=== PATIENT | male | born 1955 | race Caucasian/White ===

== ENCOUNTER 2025-02-14 10:56 | Outpatient (AMB) | payer MEDICARE, SELFPAY ==
--- OUTSIDE RECORDS SUMMARY | 2024-07-19 04:33 | XMS_ITS | Continuity of Care Document ---
Author Organization [facility] Address [address] [place] [address] Dr [address] [place] [id number] Phone Care Team Providers Care Special Weapons Unit Officer Name Role Phone Foster CARPENTER, PAVITHRA, Zain NORIEGA Unavailable U navailable Allergies, Adverse Reactions, Alerts Substance Reaction Status Criticality No Known Allergies Active No Inform ation Advance Directives Directive Yes / No Effective Date File Name No Information Encounters Encounter Description Practice Location Reason(s) For Visit Diagnoses Date Provider Encounter Disposition [facility], [address] [place] [address] Dr Douglas [address]ores dolan [place], [id number], tel:[phone] [facility] No Information 5 Foster CARPENTER RVT, RPVI Robert. [address] [place] [address], [id number] , [place]. tel:[phone] [facility], [address] [place] [address] Dr Douglas [address]SuFlores d[place], [id number], tel:[phone] [facility] hypertension (idiopathic) with other complications of left lower extremity 4 Foster CARPENTER RVT, RPVI Robert. [address] [place] [address], [place], [place], [id number] , [place]. tel:[phone] [facility], [address] [place] [address] Dr Douglas [address]SuFlores dolan MD, [id number], tel:[phone] [facility] [place] Encounter for follow-up examination after completed treatment for conditions other than malignant neChronic venous hypertension (idiopathic) with other complications of left lower extremity 4 Foster CARPENTER RVT, LEANN Pittman. [address] [facility], Suite [facility], [facility], [place], [id number] , [place]. tel: [phone] [facility], [address] [place] [address] Dr Douglas [address], [id number], [place] tel:[phone] [facility] [place] Varicose veins of left lower extremity with other complications 4 Donny Leiva . [address] [facility], [place] [address], [facility], [place], [id number] , [place]. tel: [phone] [facility], [address] [place] [address] Dr Douglas [address] [place], [id number], [place] tel:[phone] [facility] [place] Varicose veins of left lower extremity with other complications 4 Foster CARPENTER RVT, LEANN Pittman. [address] [place] [address], [facility], [place], [id number] , [place]. tel: [phone] [facility], [address] [place] [address] Dr Douglas [address], [id number], [place] tel:[phone] [facility] [place] No Information 4 Fotser CARPENTER RVT, LEANN Pittman. [address] [facility] [address], [facility], [place], [id number] , [place]. tel: [phone] [facility], [address] [place] [address] Dr [address], [id number], [place] tel:[phone] [facility] [place] Chronic venous hypertension (idiopathic) with other complications of left lower extremityCram p and spasmRestless legs syndromeEssen tial (primary) hypertensionP ruritus, unspecified 4 Foster CARPENTER RVT, LEANN Pittman. [address] [place] [address], [place], [place], [id number] , [place]. tel:[phone] [facility], [address] [place] [address] Dr Douglas 1000[facility] 1000[place], [id number], tel:[phone] [facility] Varicose veins of left lower extremity with other complications Pain in left lower legPain in left legLocalized edemaRestless legs syndromeEssen tial (primary) hypertensionP ruritus, unspecifiedCr amp and spasm 4 Foster CARPENTER RVT, LEANN Pittman. [address] [place] [address], [place], [place], [id number] , [place]. tel:[phone] [facility], [address] [place] [address] Dr [address] [address], [id number], tel:[phone] [facility] Chronic venous hypertension (idiopathic) with other complications of left lower extremity 4 Foster CARPENTER RVT, LEANN Pittman. [facility] [place] [address], [place], [place], [id number] , [place]. [phone] Family History Family Member Type Diagnosis Age At Onset No Information Payers Payer name Insurance type Identifiers Authorization(s) Com ments No Information Social History Type Description Quantity Date Captured Comments Alcohol Use Details Unknown Caffeine Use Details Unknown Tobacco Use Status No Information Smoking Status No Information Sex Male Current Gender Male (finding) Chief Complaint And Reason For Visit No Information Plan Of Treatment Date Type Action Status Goal Diet education completed Referral Ordered: Weight management: Referral to physician timeframe: 3 Months (related to Body mass index (BMI) 31.0-31.9, adult) ordered History Of Present Illness Encounter Date Complaint History Of Prese nt Illness No Information Functional Status Date Description Comments No Information Instructions Date Instruction Additional Infor mation Patient education booklet given Related to Chronic venous hypertension (idiopathic) with other complications of left lower extremity Patient education booklet given Related to Varicose veins of left lower extremity with other complications Lifestyle education Related to B eileen mass index (BMI) 31.0-31.9, adult Giving Encouragement to exercise Related to Body mass index (BMI) 31.0-31.9, adult Diet education Related to Body mass index (BMI) 31.0-31.9, adult Assessments Type Assessment Date No Information
[2025-02-14 11:01] VITALS: BMI 31.0
--- NOTE | 2025-02-14 11:01 | A.PHYSOV ---
Vital Signs 02/14/25 11:01 Height 5 ft 11 in Weight 222 lb BMI 31.0 Intake Visit Reasons: NPV- lumbar radiculopathy Intake Note: Patient is a 69 year old male here for a new patient office visit. Patient has been referred for lumbar radiculitis. Blower Mechanic Required: No Allergies doxycycline Allergy (Unknown, Verified 02/14/25 11:03) Unknown rosuvastatin Allergy (Unknown, Verified 02/14/25 11:03) Unknown HPI Comments Details: History of Present Illness The patient is a 69 year old male presenting for evaluation of low back pain with radiation into his left leg. He reports that for the last 3-4 months, he has had back and leg pain, which he suspects may have started after moving a heavy chest of drawers. The pain initially started on his side, then moved to his ankle and foot, and now primarily presents in his buttock and ankle, describing the pain as excruciating at times. His symptoms have progressed to the point where a few weeks ago he could barely stand and the pain would make him cry. Due to the pain, he has been sleeping in a recliner for the past 3-4 months as this is the only position that provides relief, despite having an adjustable bed. He uses a heating pad without a cover directly on his skin for relief, which has resulted in guillory on his back. Prior treatments include complex care nurse, which was not helpful, and physical therapy, which initially provided some benefit but then his symptoms regressed after 2-3 weeks. He has been taking gabapentin, which seems to help, but he is averse to taking other pain pills. He has a history of arthritis, a torn meniscus approximately three years ago that resolved without surgery after weight loss, and prior vein surgery on his legs. I reviewed the referring provider's no prior to consultation Pain Description - Onset: Began approximately 3-4 months ago, possibly after moving a heavy piece of furniture. - Location and Radiation: Pain is in the low back and left buttock, radiating down the side of the left leg to the ankle and foot. - Quality and Severity: Described as excruciating at times, severe enough to cause him to cry and make standing difficult. - Exacerbating factors: Standing can bring on severe pain. - Relieving factors: Sitting down, applying a heating pad to the buttock, taking gabapentin, and sleeping in a recliner provide relief. - Associated Symptoms: Reports weakness in the leg noted by his physical therapist. Results - Imaging: - X-ray of the lumbar spine shows degenerative disc disease and moderate disc space narrowing at L4-5 and L5-S1. - Hip x-ray is normal. - An MRI of the lumbar spine is scheduled for tonight. [facility] Surgical History H/O lithotripsy Hx of tonsillectomy H/O hernia repair Social History Alcohol intake: current Alcohol intake frequency: does not drink Patient Tobacco Use Status: Never used Tobacco Use of substances other than those prescribed or required for medical reasons: No Review of Systems Narrative Review of Systems - Musculoskeletal: Reports low back pain and left leg pain radiating from the buttock to the ankle. - Neurological: Reports leg weakness. - Constitutional: Reports difficulty sleeping due to pain, requiring him to sleep in a recliner. - Integumentary: Reports guillory on his back from use of a heating pad. Physical Exam Exam Exam: Physical Exam - Back: Visual inspection reveals evidence of guillory on the lower back. - Lumbar Spine: Extension did not reproduce radicular pain. - Lower Extremities: Motor strength is 5/5 for foot dorsiflexion and plantarflexion bilaterally. - Straight leg raise test is negative bilaterally. - Resisted hip flexion does not elicit pain. - Sensation is intact and symmetric to light touch throughout bilateral lower extremities. Vital Signs: BMI result Body Mass Index 31.0 Assessment & Plan Assessment & Plan (1) Lumbar radiculopathy: Code(s): M54.16 - Radiculopathy, lumbar region Category: Medical (2) Lumbar spondylosis: Code(s): M47.816 - Spondylosis without myelopathy or radiculopathy, lumbar region Category: Medical Plan Pain Management - Affect: The pain is causing significant distress, including episodes of crying, and severe sleep disruption. - Analgesia: The patient uses gabapentin which provides some relief and occasionally takes Motrin. - Adverse Effects: He has sustained guillory on his back from using a heating pad without a protective cover. - Activities of Daily Living: Sleep is significantly impacted, as he can only sleep in a recliner for the last 3-4 months. - Aberrant Drug Related Behaviors: The patient is averse to taking prescription pain pills and has expressed a desire to avoid them. Plan Patient was informed and verbally consented to the use of an ambient scribe for clinic note documentation during this visit. 1. Low Back Pain With Left Radiculopathy The patient's symptoms are consistent with a left-sided lumbosacral radiculopathy, likely from a pinched nerve at the L5-S1 level. This could be due to a disc herniation or foraminal narrowing from arthritis, which is seen on his prior X-rays. The plan is to obtain and review the results of the patient's pending lumbar spine MRI to confirm the diagnosis and identify the precise cause. Once the MRI report is received and reviewed, the likely recommendation will be a left L5-S1 epidural steroid injection. The procedure's goal of achieving 50-80% pain relief for 3-6 months, its repeatability, and the alternative of taking pills (which the patient declines) were discussed. Follow-up will occur via phone to discuss the MRI results and arrange for the injection, pending insurance authorization. Discussion Notes I discussed with the patient that his symptoms strongly suggest a pinched nerve in his lower back, likely at the L5-S1 level, causing the pain radiating into his left leg. I explained that while his X-rays show some arthritis and disc space narrowing, an MRI is necessary to visualize the nerves and discs to confirm the diagnosis. I introduced the option of a lumbar epidural steroid injection as a primary treatment once the diagnosis is confirmed. I explained that the injection uses a long-acting steroid to reduce inflammation around the pinched nerve, with the goal of 50-80% pain reduction lasting three to six months, and that the procedure is repeatable if effective. We discussed that this is an alternative to taking oral pain medications, which he wishes to avoid. I informed him that once I review the MRI report, I will call him to discuss the findings and can order the injection at that time without needing him to return for another office visit. We discussed that the procedure can be performed in the office, and while there is a chance of temporarily magnifying his leg pain if the needle contacts the nerve, he appears to be a good candidate to tolerate the procedure without sedation. Patient Instructions - Please proceed with your scheduled MRI of your lower back tonight. - After the MRI, please contact the office of the doctor who ordered it (Dr. Avila) and request that they fax the report to our office. - Once we receive and review your MRI report, we will call you to discuss the findings and the plan for a steroid injection. - You do not need to schedule a follow-up appointment in the office; we will handle the next steps over the phone. - Continue to use your gabapentin as needed for pain, but be careful with heating pads to avoid burning your skin. Coding Level of Care Code New Pt Level 4 (24015) Diagnoses Lumbar radiculopathy M54.16 Lumbar spondylosis M47.816
--- OUTSIDE RECORDS SUMMARY | 2025-02-14 12:51 | XMS_ITS | Continuity of Care Document ---
Author Organization [facility], Main Office Address [address] [place] [address] Care Team Providers Care Pipeline Engineer Name Role Phone JORGE ALBERTO OLEA Anesthesia Assistant [facility] Urologist OPHELIA MITCHELL Clinical Account Manager [phone] [facility] (SHADE HENDRIX) Orthopedic Surgeon DREW BLOOD Primary Care Provider Assessment No assessment recorded. Plan of Treatment Reminders Order Date Submit Date Provider Last Modified By Organization Details Last Modified Time Details Appointments FOLLOW UP 30MIN 2024 10:30A M VIANCA ACEVEDO Not available Not available Not available PE EST 2025 03:00P M Drew Blood MD Not available Not available Not available Lab None recorded. Referral None recorded. Procedures None recorded. Surgeries None recorded. Imaging None recorded. Medication Orders ibuprofen 800 mg tablet 2024 025 [facility]acy #[id number], [address], [place], [address], 01/22/2025 10:55:11 amlodipin e 5 mg tablet 2024 025 [facility] #[id number], [address], [place], [address], 01/22/2025 10:55:13 lisinopri l 20 mg tablet 2024 025 [facility]acy #[id number], [address], [place], [address], 01/22/2025 10:55:15 Patient TargetsNo targets recorded. Patient Instructions Encounter Date Encounter Id Patient Instructions Last Modified By Organization Details Last Modified Time 01/22/2025 [id number] high blood pressure: care instructions Not available 01/22/2025 10:55:08 learning about high blood pressure Not available 01/22/2025 10:55:08 Addendum: Melita peres s approached me today reporting that the patient has been experiencing worsening radicular symptoms, including numbness in the right foot. I contacted the patient directly, and he confirmed increasing numbness as well as new-onset weakness. He reports completing physical therapy but has had difficulty performing the prescribed exercises. Given the progression of symptoms and the radiologist s findings on the recent X-ray, an MRI has been ordered for further evaluation. Red flags and indications for seeking immediate care in the emergency department were reviewed with the patient. MRI order has been placed. [email or web address] Not available 02/06/2025 12:55:49 Reason for Referral None Reported. Results Created Date Observation Date Name Description Value Unit Range Abnormal Flag Note LastModifiedBy Organization Detail LastModifiedTime 01/23/2001/22/2025 BASIC METAB OLIC PANEL (8) glucose 86 mg/dL 70-99 normal Not Available [facility] ([facility]) [address] [place], [address], 01/22/2025 18:06:01 01/23/2001/22/2025 BASIC METAB OLIC PANEL (8) BUN 15 mg/dL 8-27 normal Not Available [facility] ([facility]) [address] [place], [address], 01/22/2025 18:06:01 01/23/20 25 01/22/2025 BASIC METAB OLIC PANEL (8) creatinine 0.94 mg/dL 0.76-1 .27 normal Not Available [facility] ([facility]) [address] [place], [address], 01/22/2025 18:06:01 01/23/20 25 01/22/2025 BASIC METAB OLIC PANEL (8) eGFR 89 mL/mi n/1.7 3 >59 normal Not Available [facility] ([facility]) [address] [place], [address], 01/22/2025 18:06:01 01/23/20 25 01/22/2025 BASIC METAB OLIC PANEL (8) BUN/creatini ne ratio 16 10-24 normal Not Available [facility] ([facility]) [address] [place], [address], 01/22/2025 18:06:01 01/23/20 25 01/22/2025 BASIC METAB OLIC PANEL (8) sodium 137 mmol/ L 134-14 4 normal Not Available [facility] ([facility]) [address] [place], [address], 01/22/2025 18:06:01 01/23/20 25 01/22/2025 BASIC METAB OLIC PANEL (8) potassium 4.2 mmol/ L 3.5-5. 2 normal Not Available [facility] ([facility]) [address] [place], [address], 01/22/2025 18:06:01 01/23/20 25 01/22/2025 BASIC METAB OLIC PANEL (8) chloride 101 mmol/ L 96-106 normal Not Available [facility] ([facility]) [address] [place], [address], 01/22/2025 18:06:01 01/23/20 25 01/22/2025 BASIC METAB OLIC PANEL (8) carbon dioxide, total 26 mmol/ L 20-29 normal Not Available [facility] ([facility]) [address] [place], [address], 01/22/2025 18:06:01 01/23/20 25 01/22/2025 BASIC METAB OLIC PANEL (8) calcium 9.7 mg/dL 8.6-10 .2 normal Not Available [facility] ([facility]) [address], [place], [address], 01/22/2025 18:06:01 12/27/19 25 12/25/2024 XR, lumba r spine No observ ation record ed. [facility] [address], [place], [address], 12/27/2024 13:09:40 Result Notes None recorded. Problems Name Problem SNOMED Code Status Onset Date Resolution Date Notes Provider Name and Address Organization Details Recorded Time Obstruct edda sleep apnea syndrome [id number] Active Refuses CPAP Rafa Mcpherson MD [address], [place], [address], [facility] 6 11:40:10 Impacted cerumen 34955922 Completed 05/25/2023 BRIAN Fung, [facility] 4 10:57:15 Upper abdomina l pain 39299441 Completed 02/13/2018 Jayesh Mcallister MD [address] [address], [place], [address], [facility] 8 11:18:01 Chest pain 19013059 Completed 07/20/2016 BRIAN Fung, [facility] 7 10:42:32 Influenz a 5416571 Completed 03/20/2020 BRIAN Fung, [facility] 1 10:42:12 Tear of medial meniscus of knee 227734953 Active Rafa Mcpherson MD [address] [address], [place], [address], [facility] 6 13:21:49 Pleuriti c pain 1553294 Completed 09/09/2018 Rafa Mcpherson MD [address] [address], [place], [address], [facility] 9 22:43:23 Right upper quadrant pain 988491394 Completed 09/09/2018 Rafa Mcpherson MD [address], [facility] [place], [address], [facility] 9 22:44:18 Pneumoni a 648644058 Completed 02/13/2018 Jayesh Mcallister MD [address], [place], [address], [facility] 8 11:13:21 Cellulit is and abscess of foot excludin g toe Completed 200609/17/2013 RESOLVED DATE: 10/28/19 07; RECORDED 10/28/19 07 6:57AM BY RAFA MCPHERSON MD, OFFICE VISIT Rafa Mcpherson MD [address], [place], [address], [facility] 6 11:40:09 Cellulit is and abscess of foot excludin g toe Completed 200610/07/2013 RESOLVED DATE: 10/28/19 07; RECORDED 10/28/19 07 6:57AM BY RAFA MCPHERSON MD, OFFICE VISIT Rafa Mcpherson MD [address], [place], [address], [facility] 6 11:40:09 Epigastr ic pain 34242293 Completed 201109/17/2013 RECORDED 02/15/20 12 10:16AM BY NALLELY LOFTON MA, ANNOTATI ON/ADDEN DUM Rafa Mcpherson MD [address], [place] [facility] [place] [place], [address], [facility] 6 11:40:10 Chest pain 41090412 Completed 201109/17/2013 IMPRESSI ON: HE IS GETTING STRESS TEST IN 2 WEEKS. DOUBT CARDIAC CAUSE. COULD BE GI RELATED. BUT DOES NOT WANT TO TAKE OMEPRAZO LE BECAUSE HATES BEING ON MEDS.; RECORDED 02/15/20 12 10:16AM BY NALLELY LOFTON MA, ANNOTATI ON/ADDEN DUM Nallely encinas MA null, [facility] 7 10:42:32 Kidney stone 31340593 Completed 201109/17/2013 RECORDED 02/15/20 12 10:16AM BY NALLELY LOFTON MA, ANNOTATI ON/ADDEN DUM Rafa Mcpherson MD [address] [address], [place], [address], [facility] 6 11:40:09 Blood in urine 18707765 Completed 201109/17/2013 IMPRESSI ON: NEG URINE HERE NO EVIDENCE OF INFECTIO N; RECORDED 02/15/20 12 10:16AM BY NALLELY LOFTON MA, ANNOTATI ON/JERIEN DUM Rafa Mcpherson MD [address] [address], [place], [address], [facility] 6 11:40:09 Hemoptys is 85643818 Completed 201109/17/2013 IMPRESSI ON: CXR NORMAL. 1 EVENT. SUSPECT POSTNASA L DRIP FROM EITHER ALLERGIE S OR VIRAL URI. HE DOES NOT WANT TO TAKE FLONASE OR ANY OTHER MEDICINE S THAT COULD HELP THIS.; RECORDED 02/15/20 12 10:16AM BY NALLELY LOFTON MA, ANNOTATI ON/ADDEN DUM Rafa Mcpherson MD [address] [address], [place], [address], [facility] 6 11:40:09 Influenz a vaccine needed [id number] 06 Completed 201109/17/2013 RECORDED 02/15/20 12 10:17AM BY NALLELY LOFTON MA, ANNOTATI ON/ADDADRI Mcpherson MD [address] [address], [place], [address], [facility] 6 11:40:10 Shoulder joint pain 066818378 Completed 201109/17/2013 RECORDED 02/15/20 12 10:17AM BY NALLELY LOFTON MA, GUY ON/ADDEN DUM Rafa Mcpherson MD [address], [place], [address], [facility] 6 11:40:09 Epigastr ic pain 26318919 Completed 201110/07/2013 RECORDED 02/15/20 12 10:16AM BY NALLELY LOFTON MA, ANNOTATI ON/ADDEN DUM Rafa Mcpherson MD [address], [place], [address], [facility] 6 11:40:10 Chest pain 86185815 Completed 201110/07/2013 IMPRESSI ON: HE IS GETTING STRESS TEST IN 2 WEEKS. DOUBT CARDIAC CAUSE. COULD BE GI RELATED. BUT DOES NOT WANT TO TAKE OMEPRAZO LE BECAUSE HATES BEING ON MEDS.; RECORDED 02/15/20 12 10:16AM BY NALLELY LOFTON MA, ANNOTATI ON/ADDEN DUM Nallely encinas MA null, [facility] 7 10:42:32 Kidney stone 28017875 Completed 201110/07/2013 RECORDED 02/15/20 12 10:16AM BY NALLELY LOFTON MA, ANNOTATI ON/ADDEN DUM Rafa Mcpherson MD [address], [place], [address], [facility] 6 11:40:09 Blood in urine 23679150 Completed 201110/07/2013 IMPRESSI ON: NEG URINE HERE NO EVIDENCE OF INFECTIO N; RECORDED 02/15/20 12 10:16AM BY NALLELY LOFTON MA, ANNOTATI ON/NIKKI Mcpherson MD [address], [place], [address], [facility] 6 11:40:09 Hemoptys is 14872358 Completed 201110/07/2013 IMPRESSI ON: CXR NORMAL. 1 EVENT. SUSPECT POSTNASA L DRIP FROM EITHER ALLERGIE S OR VIRAL URI. HE DOES NOT WANT TO TAKE FLONASE OR ANY OTHER MEDICINE S THAT COULD HELP THIS.; RECORDED 02/15/20 12 10:16AM BY NALLELY LOFTON MA, GUY ON/NIKKI Mcpherson MD [address], [place], [address], [facility] 6 11:40:09 Influenz a vaccine needed [id number] 06 Completed 201110/07/2013 RECORDED 02/15/20 12 10:17AM BY NALLELY LOFTON MA, ANNOTATI ON/NIKKI Mcpherson MD [address] [address], [place], [address], [facility] 6 11:40:10 Shoulder joint pain 915592581 Completed 201110/07/2013 RECORDED 02/15/20 12 10:17AM BY NALLELY LOFTON MA, GUY ON/NIKKI Mcpherson MD [address], [place], [address], [facility] 6 11:40:09 Cellulit is of digit 60203374 Completed 201109/17/2013 STORY: TRAUMA AND POSSIBLE INFECTIO N RIGHT GREAT TOE; RECORDED 02/18/20 12 8:42AM BY GUY CHRIS ON/NIKKI Mcpherson MD [address], [place], [address], [facility] 6 11:40:09 Injury of knee 960288865 Completed 201109/17/2013 RECORDED 02/18/20 12 8:42AM BY GUY CHRIS ON/ADDEN DUM Rafa Mcpherson MD [address], [place], [address], [facility] 6 11:40:10 Cellulit is of digit 73776450 Completed 201110/07/2013 STORY: TRAUMA AND POSSIBLE INFECTIO N RIGHT GREAT TOE; RECORDED 02/18/20 12 8:42AM BY GUY CHRIS ON/ADDEN BRITTANY Mcpherson MD [address], [place], [address], [facility] 6 11:40:09 Injury of knee 424231094 Completed 201110/07/2013 RECORDED 02/18/20 12 8:42AM BY GUY CHRIS ON/ADDEN DUM Rafa Mcpherson MD [address], [place], [address], [facility] 6 11:40:10 Follow-u p encounte r Completed 201309/17/2013 RECORDED 06/07/19 14 11:05AM BY NALLELY LOFTON MA, DARIONATI ON/ADDEN DUM Rafa Mcpherson MD [address], [place], [address], [facility] 6 11:40:10 Malaise and fatigue 338695347 Completed 201309/09/2018 Rafa Mcpherson MD [address], [place], [address], [facility] 9 22:44:20 Gastroes ophageal reflux disease 716597721 Active 2013 Nallely encinas [place] null, [facility] 6 09:20:52 Hyperlip idemia 09416410 Active 2013 BRIAN Fung, [facility] 6 09:21:06 Hypersom ziggy 78472793 Completed 201307/21/2015 RECORDED 06/07/19 14 12:05PM BY RAFA MCPHERSON MD, OFFICE VISIT Rafa Mcpherson MD [address], [place], [address], [facility] 6 11:40:10 Essentia l hyperten steffanie 41967617 Active 2013 BRIAN Fung, [facility] 6 09:21:09 Contact dermatit is due to plants, except food Completed 201309/17/2013 RECORDED 06/07/19 14 11:05AM BY NALLELY LOFTON MA, ANNOTATI ON/ADDEN DUM Rafa Mcpherson MD [address], [place], [address], [facility] 6 11:40:09 Renal colic 5265366 Active 2013 IMPRESSI ON: HX OF LARGE STONE 2009 TX WITH LASER AND STENT, NOW RETURN OF PAIN, WILL REFER TO UROLOGY, GET IMAGING FIRST IF THEY PREFER, DOES NOT WANT PAIN MEDS, HYDRATE AND WILL CHECK URINE FOR INFECTIO N BUT URINE DIP IS CLEAN, CHECK CULTURE, PT TO CALL IF SIGNS OF ILLNESS, FEVER; BRIAN Fung, [facility] 6 09:21:16 Follow-u p encounte r Completed 201310/07/2013 RECORDED 06/07/19 14 11:05AM BY NALLELY LOFTON MA, ANNOTATI ON/ADDEN DUM Rafa Mcpherson MD [address], [place], [address], [facility] 6 11:40:10 Contact dermatit is due to plants, except food Completed 201310/07/2013 RECORDED 06/07/19 14 11:05AM BY NALLELY LOFTON MA, ANNOTATI ON/NIKKI Mcpherson MD [address], [place], [address], [facility] 6 11:40:09 Body mass index 30+ - obesity 353590289 Active 2022 Kathia Day PA-C [address], [place], [address], [facility] 3 09:14:55 Pain in left lower limb 878583533 Active 2023 Margarito Noel, [facility] [address], [place], [address], [facility] 4 11:11:30 Venous varices 140725030 Active 2023 Margarito Noel, [facility] [address], [place], [address], [facility] 4 11:16:22 Strain of flexor muscle of left hip 53933139301 675533 Active 2023 Margarito Noel, [facility] [address], [place], [address], [facility] 4 11:19:18 Tubular adenoma 240257809 Active 2023 Kathia Day PA-C [address], [place], [address], [facility] 4 10:16:41 Pain of left calf 69837820535 87379 Active 2024 PATRICK DAVIS [place], [facility]- [address], [place], [address], [facility] 5 10:06:52 Blood pressure above referenc e range 22019481 Active 2024 PATRICKGARTH DAVIS [facility] [address], [place], [address], [facility] 5 12:48:52 Lumbar radiculo brian 514006681 Active 2024 [facility] [address], [place], [address], [facility] 5 10:48:25 Problem Notes None recorded. Procedures Surgical History Date Name Laterality Status Provider Name and Address Organization Details Recorded Time 08/29/19 21 Colonoscopy completed Sarah Sow [facility] 09/08/2020 12:53:01 03/27/19 16 EGD completed Юлия Abarca [facility] 04/01/2015 10:26:48 Tonsillectomy completed Nallely velazquez MA [facility] 09/25/2013 09:57:37 Hernia Repair completed Nallely velazquez MA [facility] 09/25/2013 09:57:37 Fragmenting of kidney stone completed Nallely velazquez MA [facility] 03/20/2020 10:41:58 Imaging Results None recorded. Procedure Notes None recorded. Medical Equipment None Reported. Allergies Allergen ID Allergen Name Allergen Category Reaction Reaction Severity Criticality Documentation Date Start Date Code Code System Note Provider Name and Address Organization Details Recorded Time 23247 No known allergy (situatio n) Not available Not available Not available Not available 09/10/20132010 22341 6003 SNOMED COMME NT: RECOR DED 02/24 1:06P M BY MARIA ELENA BENNETT [place], OFFIC E VISIT ; Not Available [facility] 4 13:29:01 39949 doxycycli ne Not available other Not available Not available 10/09/2014 3640 RxNorm taken for Lyme Disea se; made me crazy BRIAN Fung, [facility] 5 10:25:49 00494 rosuvasta tin medicatio n arthralgi a (joint pain) myalgias (muscle pain) Not available Not available Not available 05/25/2023 80860 2 [facility] 10:[facility]32 Medications Name Sig Start Date Stop Date Status Note LastModified by Organization Details LastModified Time amoxicill in 500 mg capsule TAKE 1 CAPSULE BY MOUTH EVERY 6 HOURS UNTIL GONE 04/17 completed Not Available Not Available Not Available clindamyc in HCl 300 mg capsule TID 02/24 completed RECORDED 02/25/20 11 1:02PM BY NALLELY LOFTON MA, OFFICE VISIT; Not Available Not Available Not Available ibuprofen 800 mg tablet TAKE 1 TABLET BY MOUTH THREE TIMES A DAY NEEDED active Not Available Not Available No t Available benzonata te 200 mg capsule TAKE 1 CAPSULE BY MOUTH 3 TIMES A DAY NEEDED FOR COUGH FOR UP TO 10 DAYS. 07/06 completed Not Available Not Available Not Available meloxicam 15 mg tablet TAKE 1 TABLET BY MOUTH EVERY DAY 03/20 completed Not Available Not Available Not Available lisinopri l 20 mg tablet TAKE 1 TABLET BY MOUTH EVERY DAY active Not Available Not Available No t Available famotidin e 40 mg tablet TAKE 1 TABLET BY MOUTH EVERYDAY AT BEDTIME 11/12 completed Not Available Not Available Not Available Debrox 6.5 % ear drops INSTILL 5 DROPS INTO AFFECTED EAR(S) BY OTIC ROUTE 2 TIMES PER DAY FOR NO MORE THAN 4 DAYS 07/06 completed Not Available Not Available Not Available penicilli n V potassium 500 mg tablet active Not Available Not Available Not Available acetamino phen 300 mg-codein e 30 mg tablet TAKE 1 TABLET BY MOUTH EVERY 6 HOURS NEEDED PAIN 03/20 completed Not Available Not Available Not Available amlodipin e 5 mg tablet TAKE 1 TABLET BY MOUTH EVERY DAY active Not Available Not Available No t Available sulfameth oxazole 800 mg-trimet hoprim 160 mg tablet TWO TIMES DAILY 03/17 completed RECORDED 06/28/19 13 11:10AM BY RAFA MCPHERSON MD, MEDICATI ON AUTO-JUSTIN CTIVATIO N; Not Available Not Available Not Available omeprazol e 40 mg capsule,d elayed release Take 1 capsule every day by oral route. 02/13 completed Not Available Not Available Not Available amoxicill in 500 mg tablet TAKE 1 TABLET BY MOUTH EVERY 6 HOURS UNTIL GONE 05/24 completed Not Available Not Available Not Available Medrol 4 mg tablet DAILY PER INSTRUCT IONS 07/15 completed RECORDED 04/16/19 14 11:42AM BY RAFA MCPHERSON MD, MEDICATI ON AUTO-JUSTIN CTIVATIO N; Not Available Not Available Not Available amoxicill in 875 mg tablet active Not Available Not Available Not Available benzonata te 100 mg capsule Take 1 capsule 3 times a day by oral route as needed for 5 days. 03/26 completed Not Available Not Available Not Available oseltamiv ir 75 mg capsule TAKE 1 CAPSULE BY MOUTH TWICE A DAY FOR 5 DAYS 07/06 completed Not Available Not Available Not Available lisinopri l 10 mg tablet Take 1 tablet every day by oral route for 30 days. 01/22 completed Not Available Not Available Not Available omeprazol e 20 mg capsule,d elayed release Take 1 capsule every day by oral route at bedtime. 11/12 completed Not Available Not Available Not Available codeine 10 mg-guaife nesin 100 mg/5 mL oral liquid Take 10 mL every 4-6 hours by oral route for 7 days. 01/22 completed Not Available Not Available Not Available gabapenti n 100 mg capsule TAKE 1 CAPSULE BY MOUTH THREE TIMES A DAY NEEDED FOR 30 DAYS active Not Available Not Available No t Available cefuroxim e axetil 500 mg tablet Take 1 tablet twice a day by oral route for 21 days. 04/05 completed Not Available Not Available Not Available methylpre dnisolone 4 mg tablets in a dose pack TAKE 6 TABLETS ON DAY 1 DIRECTED ON PACKAGE AND DECREASE BY 1 TAB EACH DAY FOR A TOTAL OF 6 DAYS 07/06 completed Not Available Not Available Not Available amoxicill in 875 mg-potass ium clavulana te 125 mg tablet TAKE 1 TABLET BY MOUTH TWICE DAILY FOR 7 DAYS. 04/17 completed Not Available Not Available Not Available cyclobenz aprine 5 mg tablet Take 1 tablet 3 times a day by oral route as directed for 10 days. 10/21 completed Not Available Not Available Not Available rosuvasta tin 10 mg tablet TAKE HALF A TABLET FOR 1 WEEK AT BEDTIME IF TOLERATE D INCREASE TO 1 TABLET ONWARDS. 05/24 completed Not Available Not Available Not Available omeprazol e DAILY 06/06 completed RECORDED 06/07/19 14 11:11AM BY NALLELY LOFTON MA, OFFICE VISIT; Not Available Not Available Not Available ProAir HFA 90 mcg/actua tion aerosol inhaler Inhale 2 puffs every 4-6 hours by inhalati on route as needed for 30 days. 09/07 completed Not Available Not Available Not Available peg 3350-elec trolytes 236 gram-22.7 4 gram-6.74 gram-5.86 gram solution MIX WITH WATER AND DRINK 1 GLASS EVERY 15-30 MINUTES UNTIL FINISHED 10/21 completed Not Available Not Available Not Available Wegovy 0.25 mg/0.5 mL subcutane ous pen injector Inject 0.5 mL every week by subcutan eous route. 11/12 completed [email or web address] in [facility]; 05/11/21 not sure which dose he's currentl y on Not Available Not Available Not Available tirzepati de (weight loss) 10 mg/0.5 mL subcutane ous pen injector Inject 2.5 mg every week by subcutan eous route as directed . active 15 units (per patient) , prescrib ed by [email or web address] in [facility] Not Available Not Available Not Available Vitals Date Recorded Body height Body mass index (BMI) Body weight Heart rate Oxygen saturation Body temperature Systolic And Diastolic Provider Name and Address Organization Details Last Updated DateTime 5 175.26 cm 33.1 kg/m2 560734. 69 g 66 /min 96 % 97.2 [degF] 120/72 mm[Hg] Dimitri savage MA MA - [facility] [place] 5 10:16:48 Social History Question Answer Notes LastModified by Organizat ion Details LastModified Time Tobacco Smoking Status [facility]25/2013 08:50:12 Do You Have An Advance Directive? Yes [facility] [email or web address] Information not available 11/12/2021 Is Blood Transfusion Acceptable In An Emergency? Yes Information not available 10/09/2014 What Is Your Level Of Caffeine Consumption? Moderate 2 1/2cups Of Coffee Daily; [email or web address] Information not available 01/01/2025 How Much Tobacco Do You Chew? None Information not available 10/09/2014 What Type Of Diet Are You Following? REGULAR Information not available 09/25/2013 Which Illicit Or Recreational Drugs Have You Used? None Information not available 10/09/2014 Live Alone Or With Others? With Others ([employer] [email or web address] Information not available 11/12/2021 Do You Take Precautions To Prevent Distracted Driving? Yes Information not available 10/09/2014 How Often Do You Need To Have Someone Help You When You Read Instructions, Pamphlets, Or Other Written Material From Your Doctor Or Pharmacy? Sometimes Information not available 10/09/2014 Have You Served In The ? No [employer] Information not available 09/07/2018 Have You Or Anyone In Your Household Had Any Of The Following Symptoms In The Last 14 Days: Sore Throat, Cough, Chills, Body Aches For Unknown Reasons, Shortness Of Breath For Unknown Reasons, Loss Of Smell, Loss Of Taste, Fever At Or Greater Than 100 Degrees Fahrenheit? No Information not available 03/20/2020 Are You Or Anyone In Your Household A Health Care Provider Or Emergency Responder? No Information not available 03/20/2020 To The Best Of Your Knowledge Have You Been In Close Proximity To Any Individual Who Tested Positive For COVID-19? No Information not available 03/20/2020 *AWV ONLY* Are You Presently Prescribed Opioid Medication By PCP Or Specialist? If YES -Provider Assess The Benefit For Other, Non-opioid Pain Therapies Instead, Even If The Patient Does Not Have OUD But Is Possibly At Risk. No Information not available 03/20/2020 Have You Recently Traveled To A [place] [id number] High Risk Area Or Gathering In The Last 10 Days? No Information not available 03/20/2020 What Was The Date Of Your Most Recent Tobacco Screening? 01/01/2025 [email or web address] Information not available 01/01/2025 How Many Children Do You Have? 4 3 Boys, 1 Girl Information not available 03/20/2020 Do You Use Protection During Sex? No Information not available 10/09/2014 Do You Use Your Seat Belt Or Car Seat Routinely? Yes Information not available 08/28/2023 Seat Belts Used Routinely Yes [email or web address] Information not available 11/12/2021 Are You Sexually Active? Yes Information not available 10/09/2014 Smoke Alarm In Home Yes [email or web address] Information not available 11/12/2021 Do You Have Smoke And Carbon Monoxide Detectors In Your Home? Yes Information not available 08/28/2023 At What Age Did You Start Smoking Tobacco? 0 Information not available 10/09/2014 Are You Passively Exposed To Smoke? No Information not available 10/09/2014 How Much Tobacco Do You Smoke? No Information not available 09/25/2013 Do You Use Sunscreen Routinely? No Information not available 10/09/2014 How Many Years Have You Smoked Tobacco? 0 Information not available 10/09/2014 Sex: Unknown Functional Status Question Answer Note LastModified by Organizat ion Details LastModified Time Do you use any illicit or recreational drugs? No [email or web address] Information not available 11/12/2021 Do you or have you ever used any other forms of tobacco or nicotine? No [email or web address] Information not available 11/12/2021 What is your level of alcohol consumption? None Information not available 10/09/2014 Do you or have you ever used smokeless tobacco? Never used smokeless tobacco [id number] Information not available 05/02/2019 Are you currently employed? No Information not available 08/28/2023 Are you able to walk independently without assistance or assistive devices? YESWOREST [email or web address] Information not available 11/12/2021 Are you able to care for yourself independently? 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 Never used electronic cigarettes [email or web address] Information not available 11/12/2021 What is your exercise level? Occasional Information not available 08/28/2023 Mental Status None recorded. Family History Relationship Description Onset Age of this Age Resolved Age Notes LastModified by Organization Details LastModified Time Mother Essential hypertension Not available 09:29:45 Mother Hypertensive disorder Not available 08/27 09:29:45 Father Essential hypertension Not available 09:29:45 Father Diabetes mellitus [email or web address] s Not available 10/09/2014 10:25:49 Father Hypertensive disorder Not available 08/27 09:29:45 Father Heart disease 5 Not available 08/27 09:29:45 Brother Malignant neoplasm of brain Not available 08/27 09:29:45 Paternal Uncle Malignant neoplasm of colon [email or web address] Not available 2015 09:44:18 Medical History Condition Response Varicose Veins Y Acid Reflux (GERD) Y Immunizations Vaccine Type Date Status Note Provider Nam e and Address Organization Details Recorded Time COVID-19, mRNA, LNP-S, PF, 100 mcg/0.5mL dose or 50 mcg/0.25mL dose 1 completed [facility] 03/26/2021 08:44:52 COVID-19, mRNA, LNP-S, PF, 100 mcg/0.5mL dose or 50 mcg/0.25mL dose 1 completed BRIAN Bonds [facility] [place] 03/26/2021 08:44:52 Tdap 6 completed Not Available [facility] 03/16/2019 02:21:45 Influenza, split virus, quadrivalent , PF 6 completed Not Available [facility] 03/16/2019 02:22:04 Tdap 5 completed Not Available [facility] 01/22/2025 10:04:25 Influenza, split virus, quadrivalent , PF 8 completed Not Available [facility] 03/16/2019 02:22:22 Influenza, split virus, quadrivalent , PF 2 cancelled patient objection Drew Blood MD [address] [address], [place], [address], [facility] [place]/12/[place]21 10:27:16 Past Encounters Encounter ID Performer Location Encounter Start Date Encounter Closed Date Diagnosis/Indication Diagnosis SNOMED-CT Code Diagnosis ICD10 Code Diagnosis IMO Codes Diagnosis Note [id number] Drew Blood MD Main Office [address] [address] 01/01/2025 09:15:22 01/01/2025 10:17:35 Essential hypertension 96483923 I10 - Patient is reporting improved control of BP with taking 10mg lisinopril at home for 1 week. Readings at home were significan tly elevated prior to initiating lisinopril per patient report. Since resuming lisinopril last week, readings are in the range of 120-130/70 -85mmHg. Reading in office today is elevated.- Advised not to start or discontinu e medication s without medical supervisio n- Further readings needed to determine if increased dose is indicated for management . Maintain on 10mg lisinopril for the time being and RTC in 3 weeks. During that time, instructed to take BP at home at least once a day. 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 Patient demonstrat es understand ing of plan of care. Pain of left calf [id number] M79.662 [id number] - XRay of lower back demonstrat ed Degenerati ve changes are seen in the lower lumbar spine, mildly progressed at L5-S1 compared to 05/02/2019.- Patient reports significan t improvemen ts in symptoms since initiation physical therapy- Continue with physical therapy as prescribed and do exercises at home- RTC if no sustained improvemen t in pain or if symptoms worsen. Further evaluation such as MRI imaging of lower back could be considered at that juncture, as well as interventi ons such as PMR referral for joint injection. Reassuring that improvemen t is noted after 1 session with PT. Obstructiv e sleep apnea syndrome [id number] G47.33 - Patient has history of ARIN with refusal of CPAP for management - Reports today he no longer snores and believes his weight loss has contribute d to improvemen t. Believes he no longer has sleep apnea.- Advised on risks of uncontroll ed sleep apnea, and that sleep apnea may still be present even if his is no longer observing snoring.- Referring to sleep medicine for reevaluati on of sleep apnea given patient's weight loss, reported change in symptoms, and initiation of weight loss drug. [id number] Anjel Massey MD Main Office [address] [facility] [address] [facility] [place] [phone] 01/22/2025 10:03:13 01/22/2025 10:56:55 Essential hypertension [id number] I10 - Blood pressure not well controlled on current regimen when reviewing home blood pressures. Patient denies concerning symptoms associated with hypertensi on.- Patient states he has actually been taking 20mg lisinopril at home. Discussed importance of notifying PCP of all medication s and dosages, not starting medication s without medical supervisio n, and being especially mindful of reading medication labels and directions before taking medication s.- Given blood pressure at home reflects poor control on current lisinopril dosage, adding amlodipine 5mg- Has not had BMP drawn. Need to collect BMP with recent resumption of lisinopril - Patient uses ibuprofen 1-2 times per week for pain. Advised against frequent and heavy use of NSAIDs with high blood pressure- RTC in 4 weeks to evaluate blood pressure control with added amlodipine . Reviewed signs and symptoms that should prompt seeking emergency medical care in the meantime. Patient demonstrat es understand ing of plan of care. Lumbar radiculopathy [id number] M54.16 [id number] - Patient presenting with ongoing back and left leg pain associated with findings of lumbar degenerati ve changes and narrowing on XRay on 12/25/24- Patient reporting he is unsure of improvemen t in symptoms with physical therapy., has completed about 1 month of PT. Discussed additional management that could be considered such as referral to pain management or potentiall y orthopedic s. Patient declining referral at this time.- Requesting refill of ibuprofen; has been advised on reducing use of NSAIDS with hypertensi on and understand s risks of heavy and frequent use. Health Concerns Section Related Observation LastModified by Organization Detai ls LastModified Time None Recorded Concern Status LastModified by Organization Details LastModified Time None Recorded Payers Encounter Date Sequence Insurance Name Policy Number Policy Castelan Covered Member ID Castelan Member ID Guarantor Name 01/22/2025 1 [employer] (MEDICARE REPLACEMENT/A DVANTAGE - PPO) Brandon Davis [id number] Brandon Davis Notes Date Note Type Note Provider Name and Address Organization Details Recorded Time 01/22/2025 text/html Hypertension F/UReported by PatientHPIFor associated symptoms, patient reportsno dizziness,no lightheadedness,no chest pain,no shortness of breath,no palpitations,no edema, andno calf pain with exertion. For lifestyle, patient reportsregular exerciseandlimiting/ avoiding salt(always out and about and active.stopped adding salt to diet. stopped drinking soda.).ROS as noted in the HPI Brandon is a 69 year old M with PMH of HTN, LLE varicose veins, HLD, obesity, GERD, remote hx of renal calculi, R menisceal tear, ARIN. He is presenting today for follow up on hypertension as well as left leg pain. - Today Brandon reports he has actually been taking 20mg lisinopril, not 10mg; he was mistaken with his dosage at his last visit. He states he has been taking this the whole time since he resumed treatment.He has been taking his blood pressure at home since his last visit. Takes blood pressure in the morning, takes medication at night. Ranges 130-150/80-95mmHg, with average of 140/90.- He has not gotten ordered BMP since his last visit- He reports he has still been going to PT for his leg. States he has good days and bad days with his leg pain, and reports so far he does not think there has been overall improvement. Today for example, he is reporting he woke up with leg pain and his leg has been throbbing all morning. He has so far completed about a month of PT and goes two times per week. He states some of the therapists are more effective in care than others. He has been taking ibuprofen as needed for back pain, takes it about 1-2 times per week. He is also going to be getting a massager for his leg that he has tried at [facility] [employer] and thinks helps too. Drew Blood MD [address] [address], [place], [address], [facility] [place] 02/06/2025 12:55:56
--- OUTSIDE RECORDS SUMMARY | 2025-02-14 12:51 | XMS_ITS | Continuity of Care Document ---
Author Organization [facility], Main Office Address [address] [place] [address] Care Team Providers Care Multiple Wire Sawyer Name Role Phone JORGE ALBERTO OLEA House Painter Helper [facility] Urologist OPHELIA MITCHELL Diamond Sorter [facility] Orthopedic Surgeon DREW BLOOD Primary Care Provider Assessment No assessment recorded. Plan of Treatment Reminders Order Date Submit Date Provider Last Modified By Organization Details Last Modified Time Details Appointments FOLLOW UP 30MIN 2024 10:30A M DEEDEE DAVIS IN, MANA[facility]-BC Not available Not available Not available PE EST 2025 03:00P M Drew Blood MD Not available Not available Not available Lab BMP, serum or plasma 2024 025 JUAN [facility] (Centralized Electronic Ordering - All Locations), Patient Can Go To The Location Of Their Choice, [address] 01/22/2025 18:06:01 Referral sleep medicine referral - Patient has hx of ARIN, refuses CPAP. Reports improveme nt of symptoms with recent weight loss and initiatio n of medicatio n for weight loss. Referring for repeat evaluatio n. 2024 025 [facility], [address] [facility], [place], [address], 01/03/2025 10:25:42 Procedures None recorded. Surgeries None recorded. Imaging None recorded. Medication Orders lisinopri l 10 mg tablet 2024 025 [facility] [facility][id number], [address], [place], [address], 01/22/2025 10:47:30 Patient TargetsNo targets recorded. Patient Instructions Encounter Date Encounter Id Patient Instructions Last Modified By Organization Details Last Modified Time 01/01/2025 [id number] sleep apnea: car e instructions Not available 01/01/2025 10:14:03 high blood pressure: care instructions Not available 01/01/2025 10:14:03 learning about high blood pressure Not available 01/01/2025 10:14:03 I have reviewed the note and agree with the assessment and plan of care. [email or web address] Not available 01/01/2025 18:47:00 Reason for Referral Sleep Medicine Referral for Obstructive sleep apnea syndrome Patient has hx of ARIN, refuses CPAP. Reports improvement of symptoms with recent weight loss and initiation of medication for weight loss. Referring for repeat evaluation. Referring Physician: Deedee Alexis, Family Medicine, Encounter Date: 01/01/2025 Results Created Date Observation Date Name Description Value Unit Range Abnormal Flag Note LastModifiedBy Organization Detail LastModifiedTime 01/23/2001/22/2025 BASIC METAB OLIC PANEL (8) glucose 86 mg/dL 70-99 normal Not Available [facility] ([facility]) [address] [place], [address], 01/22/2025 18:06:01 01/23/2001/22/2025 BASIC METAB OLIC PANEL (8) BUN 15 mg/dL 8-27 normal Not Available [facility] ([facility]) [address] [place], [address], 01/22/2025 18:06:01 01/23/2001/22/2025 BASIC METAB OLIC PANEL (8) creatinine 0.94 mg/dL 0.76-1 .27 normal Not Available [facility] ([facility]) [address] [place], [address], 01/22/2025 18:06:01 01/23/20 25 01/22/2025 BASIC METAB OLIC PANEL (8) eGFR 89 mL/mi n/1.7 3 >59 normal Not Available [facility] ([facility]) [address] [facility], [place], [address], 01/22/2025 18:06:01 01/23/20 25 01/22/2025 BASIC METAB OLIC PANEL (8) BUN/creatini ne ratio 16 10-24 normal Not Available [facility] ([facility]) [address] [place], [address], 01/22/2025 18:06:01 01/23/20 25 01/22/2025 BASIC METAB OLIC PANEL (8) sodium 137 mmol/ L 134-14 4 normal Not Available [facility] ([facility]) [address] [place], [address], 01/22/2025 18:06:01 01/23/20 25 01/22/2025 BASIC METAB OLIC PANEL (8) potassium 4.2 mmol/ L 3.5-5. 2 normal Not Available [facility] ([facility]) [address] [place], [address], 01/22/2025 18:06:01 01/23/2001/22/2025 BASIC METAB OLIC PANEL (8) chloride 101 mmol/ L 96-106 normal Not Available [facility] ([facility]) [address] [place], [address], 01/22/2025 18:06:01 01/23/20 25 01/22/2025 BASIC METAB OLIC PANEL (8) carbon dioxide, total 26 mmol/ L 20-29 normal Not Available [facility] ([facility]) [address] [place], [address], 01/22/2025 18:06:01 01/23/20 25 01/22/2025 BASIC METAB OLIC PANEL (8) calcium 9.7 mg/dL 8.6-10 .2 normal Not Available [facility] ([facility]) [address], [place], [address], 01/22/2025 18:06:01 12/27/19 25 12/25/2024 XR, lumba r spine No observ ation record ed. [facility] [address], [place], [address], 12/27/2024 13:09:40 Result Notes None recorded. Problems Name Problem SNOMED Code Status Onset Date Resolution Date Notes Provider Name and Address Organization Details Recorded Time Obstruct edda sleep apnea syndrome [id number] Active Refuses CPAP Rafa Mcpherson MD [address] [facility] [address], [place], [address], [facility] 6 11:40:10 Impacted cerumen 08454691 Completed 05/25/2023 BRIAN Fung, [facility] 4 10:57:15 Upper abdomina l pain 73872646 Completed 02/13/2018 Jayesh Mcallister MD [address] [facility] [address], [place], [address], [facility] 8 11:18:01 Chest pain 28597776 Completed 07/20/2016 BRIAN Fung, [facility] 7 10:42:32 Influenz a 4180263 Completed 03/20/2020 BRIAN Fung, [facility] 1 10:42:12 Tear of medial meniscus of knee 242983567 Active Rafa Mcpherson MD [address], [place], [address], [facility] 6 13:21:49 Pleuriti c pain 7059215 Completed 09/09/2018 Rafa Mcpherson MD [address], [place], [address], [facility] 9 22:43:23 Right upper quadrant pain 733831466 Completed 09/09/2018 Rafa Mcpherson MD [address] [facility] [address], [place], [address], [facility] 9 22:44:18 Pneumoni a 365229158 Completed 02/13/2018 Jayesh Mcallister MD [address] [facility] [address], [place], [address], [facility] 8 11:13:21 Cellulit is and abscess of foot excludin g toe Completed 200609/17/2013 RESOLVED DATE: 10/28/19 07; RECORDED 10/28/19 07 6:57AM BY RAFA MCPHERSON MD, OFFICE VISIT Rafa Mcpherson MD [address] [facility] [address], [place], [address], [facility] 6 11:40:09 Cellulit is and abscess of foot excludin g toe Completed 200610/07/2013 RESOLVED DATE: 10/28/19 07; RECORDED 10/28/19 07 6:57AM BY RAFA MCPHERSON MD, OFFICE VISIT Rafa Mcpherson MD [address] [facility] [address], [place], [address], [facility] 6 11:40:09 Epigastr ic pain 23179555 Completed 201109/17/2013 RECORDED 02/15/20 12 10:16AM BY NALLELY LOFTON MA, ANNOTATI ON/ADDEN DUM Rafa Mcpherson MD [address] [facility] [address], [place], [address], [facility] 6 11:40:10 Chest pain 26356269 Completed 201109/17/2013 IMPRESSI ON: HE IS GETTING STRESS TEST IN 2 WEEKS. DOUBT CARDIAC CAUSE. COULD BE GI RELATED. BUT DOES NOT WANT TO TAKE OMEPRAZO LE BECAUSE HATES BEING ON MEDS.; RECORDED 02/15/20 12 10:16AM BY NALLELY LOFTON MA, GUY ON/ADDEN DUM Nallely encinas MA null, [facility] 7 10:42:32 Kidney stone 59219195 Completed 201109/17/2013 RECORDED 02/15/20 12 10:16AM BY NALLELY LOFTON MA, GUY ON/ADDEN DUM Rafa Mcpherson MD [address] [facility] [address], [place], [address], [facility] 6 11:40:09 Blood in urine 38498944 Completed 201109/17/2013 IMPRESSI ON: NEG URINE HERE NO EVIDENCE OF INFECTIO N; RECORDED 02/15/20 12 10:16AM BY NALLELY LOFTON MA, GUY ON/ADD Rafa Mcphesron MD [address] [facility] [address], [place], [address], [facility] 6 11:40:09 Hemoptys is 04669327 Completed 201109/17/2013 IMPRESSI ON: CXR NORMAL. 1 EVENT. SUSPECT POSTNASA L DRIP FROM EITHER ALLERGIE S OR VIRAL URI. HE DOES NOT WANT TO TAKE FLONASE OR ANY OTHER MEDICINE S THAT COULD HELP THIS.; RECORDED 02/15/20 12 10:16AM BY NALLELY LOFTON MA, ANNOTATI ON/ADDEN DUM Rafa Mcpherson MD [address] [facility] [address], [place], [address], [facility] 6 11:40:09 Influenz a vaccine needed [id number] 06 Completed 201109/17/2013 RECORDED 02/15/20 12 10:17AM BY NALLELY LOFTON MA, ANNOTATI ON/ADDADRI Mcpherson MD [address] [facility] [address], [place], [address], [facility] 6 11:40:10 Shoulder joint pain 915295940 Completed 201109/17/2013 RECORDED 02/15/20 12 10:17AM BY NALLELY LOFTON MA, ANNOTATI ON/ADDEN DUM Rafa Mcpherson MD [address] [facility] [address], [place], [address], [facility] 6 11:40:09 Epigastr ic pain 22106271 Completed 201110/07/2013 RECORDED 02/15/20 12 10:16AM BY NALLELY LOFTON MA, ANNOTATI ON/ADDEN DUM Rafa Mcpherson MD [address] [facility] [address], [place], [address], [facility] 6 11:40:10 Chest pain 04988246 Completed 201110/07/2013 IMPRESSI ON: HE IS GETTING STRESS TEST IN 2 WEEKS. DOUBT CARDIAC CAUSE. COULD BE GI RELATED. BUT DOES NOT WANT TO TAKE OMEPRAZO LE BECAUSE HATES BEING ON MEDS.; RECORDED 02/15/20 12 10:16AM BY NALLELY LOFTON MA, DARIONATI ON/ADDEN DUM Nallely encinas MA null, [facility] 7 10:42:32 Kidney stone 71551692 Completed 201110/07/2013 RECORDED 02/15/20 12 10:16AM BY NALLELY LOFTON MA, DARIONATI ON/ADDEN DUM Rafa Mcpherson MD [address] [facility] [address], [place], [address], [facility] 6 11:40:09 Blood in urine 16969210 Completed 201110/07/2013 IMPRESSI ON: NEG URINE HERE NO EVIDENCE OF INFECTIO N; RECORDED 02/15/20 12 10:16AM BY NALLELY LOFTON MA, GUY ON/NIKKI Mcpherson MD [address] [facility] [address], [place], [address], [facility] 6 11:40:09 Hemoptys is 58689613 Completed 201110/07/2013 IMPRESSI ON: CXR NORMAL. 1 EVENT. SUSPECT POSTNASA L DRIP FROM EITHER ALLERGIE S OR VIRAL URI. HE DOES NOT WANT TO TAKE FLONASE OR ANY OTHER MEDICINE S THAT COULD HELP THIS.; RECORDED 02/15/20 12 10:16AM BY NALLELY LOFTON MA, GUY ON/NIKKI Mcpherson MD [address] [address], [place], [address], [facility] 6 11:40:09 Influenz a vaccine needed [id number] 06 Completed 201110/07/2013 RECORDED 02/15/20 12 10:17AM BY NALLELY LOFTON MA, GUY ON/NIKKI Mcpherson MD [address] [address], [place], [address], [facility] 6 11:40:10 Shoulder joint pain 112497168 Completed 201110/07/2013 RECORDED 02/15/20 12 10:17AM BY NALLELY LOFTON MA, GUY ON/NIKKI Mcpherson MD [address] [address], [place], [address], [facility] 6 11:40:09 Cellulit is of digit 45039304 Completed 201109/17/2013 STORY: TRAUMA AND POSSIBLE INFECTIO N RIGHT GREAT TOE; RECORDED 02/18/20 12 8:42AM BY GUY CHRIS ON/NIKKI Mcpherson MD [address] [facility] [address] [facility], [place], [address], [facility] 6 11:40:09 Injury of knee 161314056 Completed 201109/17/2013 RECORDED 02/18/20 12 8:42AM BY GUY CHRIS ON/ADDEN DUM Rafa Mcpherson MD [address] [facility] [address], [place], [address], [facility] 6 11:40:10 Cellulit is of digit 60712941 Completed 201110/07/2013 STORY: TRAUMA AND POSSIBLE INFECTIO N RIGHT GREAT TOE; RECORDED 02/18/20 12 8:42AM BY GUY CHRIS ON/NIKKI Mcpherson MD [address] [address], [place], [address], [facility] 6 11:40:09 Injury of knee 954961117 Completed 201110/07/2013 RECORDED 02/18/20 12 8:42AM BY GUY CHRIS ON/ADDEN DUM Rafa Mcpherson MD [address] [facility] [address], [place], [address], [facility] 6 11:40:10 Follow-u p encounte r Completed 201309/17/2013 RECORDED 06/07/19 14 11:05AM BY NALLELY LOFTON MA, DARIONATI ON/ADDEN DUM Rafa Mcpherson MD [address] [facility] [address], [place], [address], [facility] 6 11:40:10 Malaise and fatigue 531837408 Completed 201309/09/2018 Rafa Mcpherson MD [address] [facility] [address], [place], [address], [facility] 9 22:44:20 Gastroes ophageal reflux disease 916743111 Active 2013 Nallely encinas MA null, [facility] 6 09:20:52 Hyperlip idemia 19132442 Active 2013 BRIAN Fung, [facility] 6 09:21:06 Hypersom ziggy 68092904 Completed 201307/21/2015 RECORDED 06/07/19 14 12:05PM BY RAFA MCPHERSON MD, OFFICE VISIT Rafa Mcpherson MD [address], [place], [address], [facility] 6 11:40:10 Essentia l hyperten steffanie 64225350 Active 2013 BRIAN Fung, [facility] 6 09:21:09 Contact dermatit is due to plants, except food Completed 201309/17/2013 RECORDED 06/07/19 14 11:05AM BY NALLELY LOFTON MA, ANNOTATI ON/ADDEN DUM Rafa Mcpherson MD [address] [facility] [address], [place], [address], [facility] 6 11:40:09 Renal colic 7277264 Active 2013 IMPRESSI ON: HX OF LARGE STONE 2009 TX WITH LASER AND STENT, NOW RETURN OF PAIN, WILL REFER TO UROLOGY, GET IMAGING FIRST IF THEY PREFER, DOES NOT WANT PAIN MEDS, HYDRATE AND WILL CHECK URINE FOR INFECTIO N BUT URINE DIP IS CLEAN, CHECK CULTURE, PT TO CALL IF SIGNS OF ILLNESS, FEVER; BRIAN Fung, [facility] 6 09:21:16 Follow-u p encounte r Completed 201310/07/2013 RECORDED 06/07/19 14 11:05AM BY NALLELY LOFTON MA, ANNOTATI ON/ADDEN DUM Rafa Mcpherson MD [address] [facility] [address], [place], [address], [facility] 6 11:40:10 Contact dermatit is due to plants, except food Completed 201310/07/2013 RECORDED 06/07/19 14 11:05AM BY NALLELY LOFTON MA, ANNOTATI ON/ADDADRI Mcpherson MD [address], [place], [address], [facility] 6 11:40:09 Body mass index 30+ - obesity 877603779 Active 2022 Kathia Day PA-C [address], [place], [address], [facility] 3 09:14:55 Pain in left lower limb 175588341 Active 2023 Margarito Noel [facility] [address], [place], [address], [facility] 4 11:11:30 Venous varices 857944733 Active 2023 [facility] [address], [place], [address], [facility] 4 11:16:22 Strain of flexor muscle of left hip 10555900213 792927 Active 2023 [facility]arito Noel [facility] [address], [place], [address], [facility] 4 11:19:18 Tubular adenoma 888510747 Active 2023 Kathia Day PA-C [address], [place], [address], [facility] 4 10:16:41 Pain of left calf 83151264702 97089 Active 2024 DEEDEE DAVIS IN, MANAGER URGENT CARE- [address], [place], [address], [facility] 5 10:06:52 Blood pressure above referenc e range 94908940 Active 2024 DEEDEE DAVIS [facility] [address] [facility] [address], [place], [address], [facility] 5 12:48:52 Lumbar radiculo brian 254661946 Active 2024 DEEDEE DAVIS [facility] [address] [facility] [address], [place], [address], [facility] 5 10:48:25 Problem Notes None recorded. Procedures Surgical History Date Name Laterality Status Provider Name and Address Organization Details Recorded Time 08/29/19 21 Colonoscopy completed Sarah Sow [facility] 09/08/2020 12:53:01 03/27/19 16 EGD completed Юлия Abarca [facility] 04/01/2015 10:26:48 Tonsillectomy completed Nallely velazquez MA [facility] 09/25/2013 09:57:37 Hernia Repair completed Nallely velazquez MA [facility] 09/25/2013 09:57:37 Fragmenting of kidney stone completed Nallely velazquez MA [facility] 03/20/2020 10:41:58 Imaging Results None recorded. Procedure Notes None recorded. Medical Equipment None Reported. Allergies Allergen ID Allergen Name Allergen Category Reaction Reaction Severity Criticality Documentation Date Start Date Code Code System Note Provider Name and Address Organization Details Recorded Time 35046 No known allergy (situatio n) Not available Not available Not available Not available 09/10/20132010 60323 6003 SNOMED COMME NT: RECOR DED 02/24 1:06P M BY MARIA ELENA BENNETT MA, OFFIC E VISIT ; Not Available [facility] 4 13:29:01 22321 doxycycli ne Not available other Not available Not available 10/09/2014 3640 RxNorm taken for Lyme Disea se; made me crazy BRIAN Fung, [facility] 5 10:25:49 63381 rosuvasta tin medicatio n arthralgi a (joint pain) myalgias (muscle pain) Not available Not available Not available 05/25/2023 65134 2 RxNorm BRIAN Fung, [facility] 4 10:56:32 Medications Name Sig Start [...] by subcutan eous route. 11/12 completed [facility] [employer] [facility] in [facility]; 05/11/21 not sure which dose he's currentl y on Not Available Not Available Not Available mohit de (weight loss) 10 mg/0.5 mL subcutane ous pen injector Inject 2.5 mg every week by subcutan eous route as directed . active 15 units (per patient) , prescrib ed by [facility] in [facility] Not Available Not Available Not Available Vitals Date Recorded Body height Body mass index (BMI) Body weight Heart rate Oxygen saturation Body temperature Systolic And Diastolic Provider Name and Address Organization Details Last Updated DateTime 5 175.26 cm 33.5 kg/m2 763448. 47 g 67 /min 97 % 97.5 [degF] 147/91 mm[Hg] Alethea Crenshaw [place] - [facility] 5 09:38:10 Social History Question Answer Notes LastModified by Organizat ion Details LastModified Time Tobacco Smoking Status Never Smoker BRIAN Cartwright, [facility] 09/25/2013 08:50:12 Do You Have An Advance Directive? Yes HCP [email or web address] Information not available 11/12/2021 Is Blood Transfusion Acceptable In An Emergency? Yes Information not available 10/09/2014 What Is Your Level Of Caffeine Consumption? Moderate 2 1/2cups Of Coffee Daily; Information not available 01/01/2025 How Much Tobacco Do You Chew? None Information not available 10/09/2014 What Type Of Diet Are You Following? REGULAR Information not available 09/25/2013 Which Illicit Or Recreational Drugs Have You Used? None Information not available 10/09/2014 Live Alone Or With Others? With Others ([employer] Information not available 11/12/2021 Do You Take Precautions To Prevent Distracted Driving? Yes Information not available 10/09/2014 How Often Do You Need To Have Someone Help You When You Read Instructions, Pamphlets, Or Other Written Material From Your Doctor Or Pharmacy? Sometimes Information not available 10/09/2014 Have You Served In The ? No [email or web address] ([employer]) Information not available 09/07/2018 Have You Or [...] 03/20/2020 Have You Recently Traveled To A [place] [address] High Risk Area Or Gathering In The Last 10 Days? No Information not available 03/20/2020 What Was The Date Of Your Most Recent Tobacco Screening? 01/01/2025 [email or web address] Information not available 01/01/2025 How Many Children Do You Have? 4 3 Boys, 1 Girl Information not available 03/20/2020 Do You Use Protection During Sex? No Information not available 10/09/2014 Do You Use Your Seat Belt Or Car Seat Routinely? Yes Information not available 08/28/2023 Seat Belts Used Routinely Yes [email or web address] Information not available 11/12/2021 Are You Sexually Active? Yes Information not available 10/09/2014 Smoke Alarm In Home Yes [email or web address] Information not available 11/12/2021 Do You Have [...] use any illicit or recreational drugs? No [email or web address] Information not available 11/12/2021 Do you or have you ever used any other forms of tobacco or nicotine? No Information not available 11/12/2021 What is your level of alcohol consumption? None Information not available 10/09/2014 Do you or have you ever used smokeless tobacco? Never used smokeless tobacco [email or web address] Information not available 05/02/2019 Are you currently employed? No Information not available 08/28/2023 Are you able to walk independently without assistance or assistive devices? YESWOREST [email or web address] Information not available 11/12/2021 Are you able to care for yourself independently? 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 Never used electronic cigarettes [email or web address] Information not available 11/12/2021 What is your [...] 100 mcg/0.5mL dose or 50 mcg/0.25mL dose completed BRIAN Bonds [facility] 03/26/2021 08:44:52 COVID-19, mRNA, LNP-S, PF, 100 mcg/0.5mL dose or 50 mcg/0.25mL dose completed BRIAN Bonds [facility] 03/26/2021 08:44:52 Tdap 6 completed Not Available [facility] 03/16/2019 02:21:45 Influenza, split virus, quadrivalent , PF 6 completed Not Available [facility] 03/16/2019 02:22:04 Tdap 5 completed Not Available [facility] 01/22/2025 10:04:25 Influenza, split virus, quadrivalent , PF 8 completed Not Available [facility] 03/16/2019 02:22:22 Influenza, split virus, quadrivalent , PF 2 cancelled patient objection Drew Blood MD [address], [address], [facility] 11/12/2021 10:27:16 Past Encounters Encounter ID Performer Location Encounter Start Date Encounter Closed Date Diagnosis/Indication Diagnosis SNOMED-CT Code Diagnosis ICD10 Code Diagnosis IMO Codes Diagnosis Note [id number] Drew Blood MD Main Office [address] [address] 12/18/2024 09:42:53 12/18/2024 10:17:03 Pain of left calf [id number] M79.662 [id number] - Patient presenting with approximat stephanie 1 month of throbbing/ aching pain in his left calf as well as pain in his hip and lower back. Pain is aggravated by certain positions such as lying down flat and straighten ing his leg. H+P likely representa tive of musculoske letal etiology, with suspicion for radiculopa thy. No signs or symptoms of myelopathy /BEVERLY. No localized erythema, warmth, tenderness , swelling, or varicose veins on exam. Patient is able to bear weight on the affected leg and has no limitation s in ROM.- Ordering XRay of lumbar spine and hip given report back and hip pain with possible radiculopa thy in left leg based on H+P.- Referring to physical therapy for management of back, hip, and leg pain. Encouraged increased mobility and activity as tolerated as prolonged inactivity may aggravate pain and has negative health effects.- May continue to take ibuprofen and acetaminop hen for conservati ve pain management . May consider addition of gabapentin for neuropathi c pain. PMR referral may be indicated in the event of poorly controlled pain and/or treatment failure with PT.- Wells Criteria Score: 0. H+P unlikely to represent DVT. However, patient had venous ablation for varicose veins approximat stephanie 6 months ago. Encouraged follow up with [facility] to evaluate for venous etiology given his expressed concerns about prior venous ablation.- Re-evaluat e at follow up visit in 2-3 weeks. Reviewed signs and symptoms that should prompt seeking emergency medical care. Patient demonstrat es understand ing of plan of care. Blood pres sure above reference range 05002777 R03.0 733605 - Patient had elevated BP in office today in the setting of history of hypertensi on. No longer takes BP medication s (lisinopri l, amlodipine ). Patient reports he takes his BP 2-3 times per week with ranges in 120s-130s. Patient expressing concern about increased BP today and asking if he needs to go back on medication s.- Discussed with patient that BP could be temporaril y elevated in office and not reflect overall trend. Decisions regarding resumption of medication s for HTN to be made based on sustained trends and not one-time readings. RTC in 2-3 weeks for follow up. Instructed patient to take BP at home daily and keep log of readings. Bring log and home cuff to next visit. [id number] Drew Blood MD Main Office [address] [place] [address] 01/01/2025 09:15:22 01/01/2025 10:17:35 Essential hypertension [id number] I10 - Patient is reporting improved control [...] plan of care. Pain of left calf 585857 0773 [id number] M79.662 [id number] - XRay of lower back demonstrat ed [...] with PT. Obstructiv e sleep apnea syndrome [id number] G47.33 - Patient has history of ARIN [...] symptoms, and initiation of weight loss drug. Health Concerns Section Related Observation LastModified by Organization Detai ls LastModified Time None Recorded Concern Status LastModified by Organization Details LastModified Time None Recorded Payers Encounter Date Sequence Insurance Name Policy Number Policy Castelan Covered Member ID Castelan Member ID Guarantor Name 01/01/2025 1 [employer] (MEDICARE REPLACEMENT/A DVANTAGE - PPO) Brandon Davis [id number] Brandon Davis Notes Date Note Type Note Provider Name and Address Organization Details Recorded Time 01/01/2025 text/html Hypertension F/UReported by PatientHPIFor associated symptoms, patient reportsno dizziness,no lightheadedness,no chest pain,no shortness of breath,no palpitations,no edema, andno calf pain with exertion(a little more tired over the past 3-4 days). For lifestyle, patient reportsregular exerciseandlimiting/ avoiding salt(always out and about and active.stopped adding salt to diet. stopped drinking soda.). For medications, (may be feeling a bit more tired with lisinopril).ROS as noted in the HPI Brandon is a 69 year old M with PMH of HTN, LLE varicose veins, HLD, obesity, GERD, remote hx of renal calculi, R menisceal tear, ARIN. He is presenting today for follow up on an elevated BP reading in office on 12/18 as well as left leg pain. Today in office, Brandon reports trend of elevated BP trend at home, with ranges between 150-170/50-90mmHg. . He states he started taking lisinopril 10mg at home on his own out of concern about elevated readings. He started taking it about 1 week ago. At home, his readings have improved with readings between 120-130/70-85mmHg. States he is taking his BP at night generally. Provided log of readings in visit, though readings not clearly marked with date and time. Did not bring cuff to visit. Reports improvement in leg pain with current PT regimen. Has so far completed 1 session and has also been doing exercises at home. He will continue to go two times per week. Takes ibuprofen one 800mg tablet 1-3x/week as needed for pain but states his leg is no longer bothering him and he is able to sleep in bed again. As for his sleep apnea, patient reports no continued snoring since he lost weight. Believes he no longer has sleep apnea. He states he is now on a weight loss medication (tirzepatide 15 Units) as well, prescribed by the [employer] [facility] in [facility]. States he sleeps well with an adjustable bed. Drew Blood MD [address] [address], [place], [address], [facility] 01/01/2025 18:47:27
--- OUTSIDE RECORDS SUMMARY | 2025-02-14 12:51 | XMS_ITS | Data Portability ---
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 Achilles tendon was intact and he was given reassurance. Plantaris muscle injury was discussed in detail. We discussed options including short-term immobilization , activity modification, ice and rest and slow progressive return to activity over the next 2 to 3 weeks. He was comfortable with reassurance and will modify activity and use ice for the next few days progressing to heat and gentle stretching. He only had mild discomfort in his foot. He does have a spur at the insertion of the Achilles tendon, but not severe. He feels this has already made improvement and will monitor symptoms. After discussion, would like to follow-up on an as-needed basis. All questions were answered to his satisfaction. Patient was seen and evaluated by Moe Milan PA-C in indirect conjunction with Dr. Valverde. The provider agrees with the history, physical examination, recommended tests/diagnost ic imaging, and treatment plan. [email or web address] Not available 12/28/2023 10:08:12 Plan of Treatment Reminders Order Date Submit Date Provider Last Modified By Organization Details Last Modified Time Details Appointments None recorde d. Lab None recorde d. Referral None recorde d. Procedures None recorde d. Surgeries None recorde d. Imaging XR, tibia + fibula, 2 view 024 11/27/19 24 [email or web address] 1 [facility], [address], [place], [address], 4 15:28:18 XR, foot, 3 or more view 024 11/27/19 24 [email or web address] 1 [facility], [address], [place], [address], 4 15:28:18 Medication Orders None recorde d. Patient TargetsNo targets recorded. Patient InstructionsNo instructions recorded. Reason for Referral None Reported. Medical Equipment None Reported. Allergies No known drug allergies Vitals Date Recorded Body height Body mass index (BMI) Body weight Provider Name and Address Organization Details Last Updated DateTime 11/27/2023 177.8 cm 31.1 kg/m2 07102.54 g [facility] [place] [facility], 11/27/2023 10:24:16 Social History None recorded. Functional Status Question Answer Note LastModified by Organizat ion Details LastModified Time Do you use any illicit or recreational drugs? No Information not available 11/27/2023 Do you or have you ever used any other forms of tobacco or nicotine? No Information not available 11/27/2023 What is your level of alcohol consumption? None Information not available 11/27/2023 Mental Status None recorded. Family History Relationship Description Onset Age of this Age Resolved Age Notes LastModified by Organization Details LastModified Time Brother History of cancer of unknown primary site Not available 10:24:42 Mother Hypertensive disorder Not available 2023 10:24:56 Father Hypertensive disorder Not available 2023 10:24:56 Medical History Condition Response Hypertension Y Past Encounters Encounter ID Performer Location Encounter Start Date Encounter Closed Date Diagnosis/Indication Diagnosis SNOMED-CT Code Diagnosis ICD10 Code Diagnosis IMO Codes Diagnosis Note [id number] [facility] [address] [facility] [place] [address] 11/27/2023 10:09:33 11/27/2023 11:01:11 Pain in left foot [id number] 90791 M79.672 343564 Pain of ri ght lower leg [id number] 06441 M79.785 [id number] Health Concerns Section Related Observation LastModified by Organization Detai ls LastModified Time None Recorded Concern Status LastModified by Organization Details LastModified Time None Recorded Advance Directives Directive None Recorded Payers Insurance Date Sequence Insurance Name Policy Number Policy Castelan Covered Member ID Castelan Member ID Guarantor Name 11/27/2023 1 MEDICARE B-CT: NGS Brandon Westfall Ryan [id number] Brandon Davis 12/29/2023 1 [employer] (MEDICARE REPLACEMENT/A DVANTAGE - PPO) Brandon Davis [id number] Brandon Davis 11/27/2023 2 [employer] Brandon Davis [id number] Brandon Davis Notes Date Note Type Note Provider Name and Address Organization Details Recorded Time 11/27/2023 text/html ROS as noted in the HPI Date of injury 11/26/2023 Patient is a 68-year-old male who presents today with right calf pain. He was playing pickle ball yesterday when he twisted and felt a pop when he hit the ball. Pop was in calf and he had discomfort. He denied any bruising, but slight swelling. He denies any bruising currently. No numbness or tingling. He does have some pain in the left foot as well. With his ongoing symptoms he presents today for orthopedic urgent care evaluation. MOE MILAN PA-C [address], [place], [address], [place] [facility] 12/28/2023 10:08:24
--- OUTSIDE RECORDS SUMMARY | 2025-02-14 12:51 | XMS_ITS | Continuity of Care Document ---
Author Organization [facility], Main Office Address [address] [facility] [address] [place] [address] Care Team Providers Care Case Manager Name Role Phone URVASHI OLEA Legal Secretary [facility] Urologist OPHELIA MITCHELL Swimming Professor [phone] [facility] (SHADE HENDRIX) Orthopedic Surgeon DRWE BLOOD Primary Care Provider Assessment No assessment recorded. Plan of Treatment Reminders Order Date Submit Date Provider Last Modified By Organization Details Last Modified Time Details Appointments FOLLOW UP 30MIN 2024 10:30A M DEEDEE DAVIS IN, ASSOCIATE DIRECTOR QA-BC Not available Not available Not available PE EST 2025 03:00P M Drew Blood MD Not available Not available Not available Lab None record ed. Referral physic al therap ist referr al - Paticiera t has 1 month of left lower leg pain, worsen ed with lying flat on back/s tomach , elevat ion of leg. Able to bear weight on leg. No s/sx of BEVERLY. Ordere d imagin g of lumbar spine and left hip. 2024 025 [facility]HE[facility], [address], [place], [address], 12/19/2024 13:56:24 Procedures None record ed. Surgeries None record ed. Imaging XR, lumbar spine - Patien t presen ting with possib le radicu lopath y. XRay left side to r/o bony change s that may contri bute to radicu lopath y. 2024 025 [facility], [address] [place], [address], 12/26/2024 15:15:24 XR, hip, unilat eral - Patien t presen ting with possib le radicu lopath y. XRay left side to r/o bony change s that may contri bute to radicu lopath y. 2024 025 [email or web address], [address] [place], [address], 01/01/2025 11:21:05 Medication Orders None record ed. Patient TargetsNo targets recorded. Patient Instructions Encounter Date Encounter Id Patient Instructions Last Modified By Organization Details Last Modified Time 12/18/2024 [id number] I have reviewed the note and agree with the assessment and plan of care. [email or web address] Not available 12/18/2024 17:27:31 Reason for Referral Physical Therapist Referral for Pain of left calf Patient has 1 month of left lower leg pain, worsened with lying flat on back/stomach, elevation of leg. Able to bear weight on leg. No s/sx of BEVERLY. Ordered imaging of lumbar spine and left hip. Referring Physician: Deedee Alexis, Family Medicine, Encounter Date: 12/18/2024 Results Created Date Observation Date Name Description Value Unit Range Abnormal Flag Note LastModifiedBy Organization Detail LastModifiedTime 12/27/1912/25/2024 XR, lumba r spine No observ ation record ed. [facility] [address], [place], [address], 12/27/2024 13:09:40 Result Notes None recorded. Problems Name Problem SNOMED Code Status Onset Date Resolution Date Notes Provider Name and Address Organization Details Recorded Time Obstruct edda sleep apnea syndrome 62885970 Active Refuses CPAP Rafa Mcpherson MD [address] [facility] [address], [place], [address], [facility] 6 11:40:10 Impacted cerumen 08336466 Completed 05/25/2023 Nallely encinas [place] null, [facility] 4 10:57:15 Upper abdomina l pain 07797996 Completed 02/13/2018 Jayesh Mcallister MD [address], [place], [address], [facility] 8 11:18:01 Chest pain 72372453 Completed 07/20/2016 Nallely encinas [place] null, [facility] 7 10:42:32 Influenz a 3278966 Completed 03/20/2020 Nallely encinas [place] null, [facility] 1 10:42:12 Tear of medial meniscus of knee 674965196 Active Rafa Mcpherson MD [address], [place], [address], [facility] 6 13:21:49 Pleuriti c pain 4939429 Completed 09/09/2018 Rafa Mcpherson MD [address], [place], [address], [facility] 9 22:43:23 Right upper quadrant pain 967221930 Completed 09/09/2018 Rafa Mcpherson MD [address], [place], [address], [facility] 9 22:44:18 Pneumoni a 865398020 Completed 02/13/2018 Jayesh Mcallister MD [address], [place], [address], [facility] 8 11:13:21 Cellulit is and abscess of foot excludin g toe Completed 200609/17/2013 RESOLVED DATE: 10/28/19 07; RECORDED 10/28/19 07 6:57AM BY RAFA MCPHERSON MD, OFFICE VISIT Rafa Mcpherson MD [address] [facility] [address], [place], [address], [facility] 6 11:40:09 Cellulit is and abscess of foot excludin g toe Completed 200610/07/2013 RESOLVED DATE: 10/28/19 07; RECORDED 10/28/19 07 6:57AM BY RAFA MCPHERSON MD, OFFICE VISIT Rafa Mcpherson MD [address] [facility] [address], [place], [address], [facility] 6 11:40:09 Epigastr ic pain 74428562 Completed 201109/17/2013 RECORDED 02/15/20 12 10:16AM BY NALLELY LOFTON MA, ANNOTATI ON/ADDEN DUM Rafa Mcpherson MD [address] [address], [place], [address], [facility] 6 11:40:10 Chest pain 46342997 Completed 201109/17/2013 IMPRESSI ON: HE IS GETTING STRESS TEST IN 2 WEEKS. DOUBT CARDIAC CAUSE. COULD BE GI RELATED. BUT DOES NOT WANT TO TAKE OMEPRAZO LE BECAUSE HATES BEING ON MEDS.; RECORDED 02/15/20 12 10:16AM BY NALLELY LOFTON MA, ANNOTATI ON/ADDEN DUM Nallely encinas MA null, [facility] 7 10:42:32 Kidney stone 60275010 Completed 201109/17/2013 RECORDED 02/15/20 12 10:16AM BY NALLELY LOFTON MA, ANNOTATI ON/ADDEN DUM Rafa Mcpherson MD [address] [facility] [address], [place], [address], [facility] 6 11:40:09 Blood in urine 87775439 Completed 201109/17/2013 IMPRESSI ON: NEG URINE HERE NO EVIDENCE OF INFECTIO N; RECORDED 02/15/20 12 10:16AM BY NALLELY LOFTON MA, GUY ON/NIKKI Mcpherson MD [address], [place], [address], [facility] 6 11:40:09 Hemoptys is 11959841 Completed 201109/17/2013 IMPRESSI ON: CXR NORMAL. 1 EVENT. SUSPECT POSTNASA L DRIP FROM EITHER ALLERGIE S OR VIRAL URI. HE DOES NOT WANT TO TAKE FLONASE OR ANY OTHER MEDICINE S THAT COULD HELP THIS.; RECORDED 02/15/20 12 10:16AM BY NALLELY LOFTON MA, GUY ON/NIKKI Mcpherson MD [address] [facility] [address], [place], [address], [facility] 6 11:40:09 Influenz a vaccine needed [id number] 06 Completed 201109/17/2013 RECORDED 02/15/20 12 10:17AM BY NALLELY LOFTON MA, GUY ON/NIKKI Mcpherson MD [address] [facility] [address], [place], [address], [facility] 6 11:40:10 Shoulder joint pain 778011404 Completed 201109/17/2013 RECORDED 02/15/20 12 10:17AM BY NALLELY LOFTON MA, GUY ON/NIKKI Mcpherson MD [address], [place], [address], [facility] 6 11:40:09 Epigastr ic pain 77973923 Completed 201110/07/2013 RECORDED 02/15/20 12 10:16AM BY NALLELY LOFTON MA, GUY ON/NIKKI Mcpherson MD [address] [facility] [address], [place], [address], [facility] 6 11:40:10 Chest pain 83673064 Completed 201110/07/2013 IMPRESSI ON: HE IS GETTING STRESS TEST IN 2 WEEKS. DOUBT CARDIAC CAUSE. COULD BE GI RELATED. BUT DOES NOT WANT TO TAKE OMEPRAZO LE BECAUSE HATES BEING ON MEDS.; RECORDED 02/15/20 12 10:16AM BY NALLELY LOFTON MA, GUY ON/ADDEN DUM Nallely encinas MA null, [facility] 7 10:42:32 Kidney stone 83831462 Completed 201110/07/2013 RECORDED 02/15/20 12 10:16AM BY NALLELY LOFTON MA, ANNOTATI ON/NIKKI Mcpherson MD [address] [address], [place], [address], [facility] 6 11:40:09 Blood in urine 93413613 Completed 201110/07/2013 IMPRESSI ON: NEG URINE HERE NO EVIDENCE OF INFECTIO N; RECORDED 02/15/20 12 10:16AM BY NALLELY LOFTON MA, ANNOTATI ON/NIKKI Mcpherson MD [address] [address], [place], [address], [facility] 6 11:40:09 Hemoptys is 10102718 Completed 201110/07/2013 IMPRESSI ON: CXR NORMAL. 1 EVENT. SUSPECT POSTNASA L DRIP FROM EITHER ALLERGIE S OR VIRAL URI. HE DOES NOT WANT TO TAKE FLONASE OR ANY OTHER MEDICINE S THAT COULD HELP THIS.; RECORDED 02/15/20 12 10:16AM BY NALLELY LOFTON MA, GUY ON/NIKKI Mcpherson MD [address] [address], [place], [address], [facility] 6 11:40:09 Influenz a vaccine needed 26689851389 06 Completed 201110/07/2013 RECORDED 02/15/20 12 10:17AM BY NALLELY LOFTON MA, ANNOTATI ON/ADDCIERA Mcpherson MD [address], [place], [address], [facility] 6 11:40:10 Shoulder joint pain 678408206 Completed 201110/07/2013 RECORDED 02/15/20 12 10:17AM BY NALLELY LOFTON MA, ANNOTATI ON/ADDEN BRITTANY Mcpherson MD [address] [facility] [address], [place], [address], [facility] 6 11:40:09 Cellulit is of digit 35915202 Completed 201109/17/2013 STORY: TRAUMA AND POSSIBLE INFECTIO N RIGHT GREAT TOE; RECORDED 02/18/20 12 8:42AM BY GUY CHRIS ON/NIKKI Mcpherson MD [address], [place], [address], [facility] 6 11:40:09 Injury of knee 102452123 Completed 201109/17/2013 RECORDED 02/18/20 12 8:42AM BY GUY CHRIS ON/NIKKI Mcpherson MD [address] [facility] [address], [place], [address], [facility] 6 11:40:10 Cellulit is of digit 37772757 Completed 201110/07/2013 STORY: TRAUMA AND POSSIBLE INFECTIO N RIGHT GREAT TOE; RECORDED 02/18/20 12 8:42AM BY GUY CHRIS ON/NIKKI Mcpherson MD [address] [facility] [address], [place], [address], [facility] 6 11:40:09 Injury of knee 603207201 Completed 201110/07/2013 RECORDED 02/18/20 12 8:42AM BY JERRY BROWN I, ANNOTATI ON/ADDEN DUM Rafa Mcpherson MD [address], [place], [address], [facility] 6 11:40:10 Follow-u p encounte r Completed 201309/17/2013 RECORDED 06/07/19 14 11:05AM BY NALLELY LOFTON MA, ANNOTKITTY ON/ADDEN DUM Rafa Mcpherson MD [address], [place], [address], [facility] 6 11:40:10 Malaise and fatigue 713496257 Completed 201309/09/2018 Rafa Mcpherson MD [address] [facility] [address], [place], [address], [facility] 9 22:44:20 Gastroes ophageal reflux disease 877155409 Active 2013 BRIAN Fung, [facility] 6 09:20:52 Hyperlip idemia 41006308 Active 2013 BRIAN Fung, [facility] 6 09:21:06 Hypersom ziggy 67481106 Completed 201307/21/2015 RECORDED 06/07/19 14 12:05PM BY RAFA MCPHERSON MD, OFFICE VISIT Rafa Mcpherson MD [address] [facility] [address], [place], [address], [facility] 6 11:40:10 Essentia l hyperten steffanie 53664845 Active 2013 BRIAN Fung, [facility] 6 09:21:09 Contact dermatit is due to plants, except food Completed 201309/17/2013 RECORDED 06/07/19 14 11:05AM BY NALLELY LOFTON MA, ANNOTATI ON/NIKKI Mcpherson MD [address] [facility] [address], [place], [address], [facility] 6 11:40:09 Renal colic 4167571 Active 2013 IMPRESSI ON: HX OF LARGE STONE 2009 TX WITH LASER AND STENT, NOW RETURN OF PAIN, WILL REFER TO UROLOGY, GET IMAGING FIRST IF THEY PREFER, DOES NOT WANT PAIN MEDS, HYDRATE AND WILL CHECK URINE FOR INFECTIO N BUT URINE DIP IS CLEAN, CHECK CULTURE, PT TO CALL IF SIGNS OF ILLNESS, FEVER; Nallely encinas MA [facility] 6 09:21:16 Follow-u p encounte r Completed 201310/07/2013 RECORDED 06/07/19 14 11:05AM BY NALLELY LOFTON MA, DARIONATI ON/NIKKI Mcpherson MD [address] [facility] [address], [place], [address], [facility] 6 11:40:10 Contact dermatit is due to plants, except food Completed 201310/07/2013 RECORDED 06/07/19 14 11:05AM BY NALLELY LOFTON MA, ANNOTATI ON/NIKKI Mcpherson MD [address] [facility] [address], [place], [address], [facility] 6 11:40:09 Body mass index 30+ - obesity 265425883 Active 2022 Kathia Day PA-C [address] [facility] [address], [place], [address], [facility] 3 09:14:55 Pain in left lower limb 181709081 Active [address] [facility] [address], [place], [address], [facility] 4 11:11:30 Venous varices 674102997 Active 2023 Margarito Noel, [facility] [address] [facility] [address], [place], [address], [facility] 4 11:16:22 Strain of flexor muscle of left hip 58775155751 074892 Active 2023 Margarito Noel, [facility] [address] [facility] [address], [place], [place], [address], [facility] 4 11:19:18 Tubular adenoma 753546874 Active 2023 Kathia Day ORRohit [address] [facility] [address], [place], [place], [address], [facility] 4 10:16:41 Pain of left calf 22847010821 48085 Active 2024 DEEDEE DAVIS [place], [address], [place], [address], [facility] 5 10:06:52 Blood pressure above referenc e range 76200904 Active 2024 DE[place]EE DAVIS [place], [place], [address], [facility] 5 12:48:52 Lumbar radiculo brian 905251415 Active 2024 DEEDEE DAVIS [place], [place], [address], [facility] 5 10:48:25 Problem Notes None recorded. Procedures Surgical History Date Name Laterality Status Provider Name and Address Organization Details Recorded Time 08/29/19 21 Colonoscopy completed Sarah Sow [facility] 09/08/2020 12:53:01 03/27/19 16 EGD completed Юлия Abarca [facility] 04/01/2015 10:26:48 Tonsillectomy completed Nallely velazquez MA [facility] 09/25/2013 09:57:37 Hernia Repair completed Nallely velazquez MA [facility] 09/25/2013 09:57:37 Fragmenting of kidney stone completed Nallely velazquez MA [facility] 03/20/2020 10:41:58 Imaging Results None recorded. Procedure Notes None recorded. Medical Equipment None Reported. Allergies Allergen ID Allergen Name Allergen Category Reaction Reaction Severity Criticality Documentation Date Start Date Code Code System Note Provider Name and Address Organization Details Recorded Time 19167 No known allergy (situatio n) Not available Not available Not available Not available 09/10/20132010 80943 6003 SNOMED COMME NT: RECOR DED 02/24 1:06P M BY MARIA ELENA BENNETT MA, OFFIC E VISIT ; Not Available [facility] 4 13:29:01 54307 doxycycli ne Not available other Not available Not available 10/09/2014 3640 RxNorm taken for Lyme Disea se; made me crazy BRIAN Fung [facility] 5 10:25:49 82814 rosuvasta tin medicatio n arthralgi a (joint pain) myalgias (muscle pain) Not available Not available Not available 05/25/2023 48343 2 RxNorm BRIAN Fung [facility] 4 10:56:32 Medications Name Sig Start [...] by subcutan eous route. 11/12 completed [facility]; 05/11/21 not sure which dose he's currentl y on Not Available Not Available Not Available mohit de (weight loss) 10 mg/0.5 mL subcutane ous pen injector Inject 2.5 mg every week by subcutan eous route as directed . active 15 units (per patient) , [facility] ed by [facility] Not Available Not Available Not Available Vitals Date Recorded Body height Body mass index (BMI) Body weight Heart rate Oxygen saturation Body temperature Systolic And Diastolic Systolic And Diastolic Provider Name and Address Organization Details Last Updated DateTime 5 175.26 cm 33.5 kg/m2 962126. 47 g 65 /min 98 % 97.9 [degF] 151/89 mm[Hg] 140/90 mm[Hg] Urvashi García MA [facility] 5 09:48:35 Social History Question Answer Notes LastModified by Organizat ion Details LastModified Time Tobacco Smoking Status [facility] 08:50:12 Do You Have An Advance Directive? Yes HCP [email or web address] Information not available 11/12/2021 Is Blood Transfusion Acceptable In An Emergency? Yes Information not available 10/09/2014 What Is Your Level Of Caffeine Consumption? Moderate 2 1/2cups Of Coffee Daily; [email or web address] Information not available 01/01/2025 How Much Tobacco Do You Chew? None Information not available 10/09/2014 What Type Of Diet Are You Following? REGULAR Information not available 09/25/2013 Which Illicit Or Recreational Drugs Have You Used? None Information not available 10/09/2014 Live Alone Or With Others? With Others ([employer] [email or web address] Information not available 11/12/2021 Do You Take Precautions To Prevent Distracted Driving? Yes Information not available 10/09/2014 How Often Do You Need To Have Someone Help You When You Read Instructions, Pamphlets, Or Other Written Material From Your Doctor Or Pharmacy? Sometimes Information not available 10/09/2014 Have You Served In The ? No [email or web address] Information not available 09/07/2018 Have You Or [...] 03/20/2020 Have You Recently Traveled To A COVID-19 High Risk Area Or Gathering In The Last 10 Days? No Information not available 03/20/2020 What Was The Date Of Your Most Recent Tobacco Screening? 01/01/2025 [email or web address] Information not available 01/01/2025 How Many Children Do You Have? 4 3 Boys, 1 Girl Information not available 03/20/2020 Do You Use Protection During Sex? No Information not available 10/09/2014 Do You Use Your Seat Belt Or Car Seat Routinely? Yes Information not available 08/28/2023 Seat Belts Used Routinely Yes [email or web address] Information not available 11/12/2021 Are You Sexually Active? Yes Information not available 10/09/2014 Smoke Alarm In Home Yes [email or web address] Information not available 11/12/2021 Do You Have [...] use any illicit or recreational drugs? No [email or web address] Information not available 11/12/2021 Do you or have you ever used any other forms of tobacco or nicotine? No [email or web address] Information not available 11/12/2021 What is your level of alcohol consumption? None Information not available 10/09/2014 Do you or have you ever used smokeless tobacco? Never used smokeless tobacco [email or web address] Information not available 05/02/2019 Are you currently employed? No Information not available 08/28/2023 Are you able to walk independently without assistance or assistive devices? YESWOREST [email or web address] Information not available 11/12/2021 Are you able to care for yourself independently? 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 Never used electronic cigarettes [email or web address] Information not available 11/12/2021 What is your [...] or 50 mcg/0.25mL dose 1 completed BRIAN Bonds, [facility] 03/26/2021 08:44:52 COVID-19, mRNA, LNP-S, PF, 100 mcg/0.5mL dose or 50 mcg/0.25mL dose 1 completed BRIAN Bonds, [facility] 03/26/2021 08:44:52 Tdap 6 completed Not Available [facility] 03/16/2019 02:21:45 Influenza, split virus, quadrivalent , PF 6 completed Not Available [facility] 03/16/2019 02:22:04 Tdap 5 completed Not Available [facility] 01/22/2025 10:04:25 Influenza, split virus, quadrivalent , PF 8 completed Not Available [facility] 03/16/2019 02:22:22 Influenza, split virus, quadrivalent , PF 2 cancelled patient objection Drew Blood MD [address], [address], [facility] 11/12/2021 10:27:16 Past Encounters Encounter ID Performer Location Encounter Start Date Encounter Closed Date Diagnosis/Indication Diagnosis SNOMED-CT Code Diagnosis ICD10 Code Diagnosis IMO Codes Diagnosis Note [id number] Drew Blood MD Main Office [address] [facility] [address] [facility] [place] [address] 12/18/2024 09:42:53 12/18/2024 10:17:03 Pain of left calf 8561465971 438132 M79.662 [id number] - Patient presenting with agnes brown 1 month of throbbing/ aching pain in [...] patient had venous ablation for varicose veins agnes brown 6 months ago. Encouraged follow up with [facility] to evaluate for venous etiology given his expressed concerns about prior venous ablation.- Re-evaluat e at follow up visit in 2-3 weeks. Reviewed signs and symptoms that should prompt seeking emergency medical care. Patient demonstrat es understand ing of plan of care. Blood pres sure above reference range 32407026 R03.0 456061 - Patient had elevated BP in office [...] log and home cuff to next visit. Health Concerns Section Related Observation LastModified by Organization Detai ls LastModified Time None Recorded Concern Status LastModified by Organization Details LastModified Time None Recorded Payers Encounter Date Sequence Insurance Name Policy Number Policy Castelan Covered Member ID Castelan Member ID Guarantor Name 12/18/2024 1 [employer] (MEDICARE REPLACEMENT/A DVANTAGE - PPO) Brandon Westfall Ryan [id number] Brandon Khoi Ryan Notes Date Note Type Note Provider Name and Address Organization Details Recorded Time 5 text/htm l Musculoskeletal PainReported by PatientHPIFor location, patient reportspain radiating to the legs leftbut reportslumbar spine (a little bit)andleft hip. For quality, patient reportsaching(throbbing pain in left calf). For severity, patient reportsworseningandinterfere nce with sleep (has to sleep in recliner to get any sleep)(has been engaging in less physical activity). For timing, patient reportsconstant. For alleviating factors, patient reportsrelieved by changing position. For aggravating factors, patient reportsmovement/positioning( worse with sitting and elevating leg, laying flat on stomach or back, wearing compression stockings.). For associated symptoms, patient reportsno fever,no weak limbs,no tingling,no numbness of the legs/feet, andon incontinence(rom not limited in affected leg. no erythema, swelling, warmth to touch. no shortness of breath.). For duration, (present for about a month). For context, (prior history of varicose veins in the same leg with previous ablation approximately 6 months ago. patient is wondering if the venous ablation didn't work.no clear history of injury or inciting event.patient asking if he is out of alignment and needs to see chiropractor.). For medications, (takes ibuprofen and tylenol pm).ROS as noted in the HPI Brandon is a 69 year old M with PMH of HTN, LLE varicose veins, HLD, obesity, GERD, remote hx of renal calculi, R menisceal tear, ARIN. He is presenting today for leg, hip and back pains for several weeks. Separately, patient reports he stopped taking BP medications under medical supervision. States he takes BP at home 2-3 times per week. Range at home 120s to low 130s. He is concerned about elevated BP reading in office today and asking if he needs to be back on medications. Drew Blood MD [address] [address], [place], [address], [facility] 12/18/2024 17:27:43
--- OUTSIDE RECORDS SUMMARY | 2025-02-14 12:51 | XMS_ITS ---
Author Name [facility] Organization Unknown Encounters Encounter Type Encounter Reason Primary Diagnosis Location Date Ambulatory [facility] 04/24/2024 Ambulatory [facility] 03/20/2024 Ambulatory [facility] 02/15/2024 Ambulatory [facility] 12/29/2023 Ambulatory [facility] 11/27/2023 Ambulatory [facility] 11/27/2023 Ambulatory [facility] 11/27/2023
--- OUTSIDE RECORDS SUMMARY | 2025-02-14 12:51 | XMS_ITS | Data Portability ---
Author Organization [facility], Main Office Address [address] [place] [address] Care Team Providers Care Mainframe Systems Programmer Name Role Phone URVASHI OLEA Brazer Assembler [facility] UROLOGY Urologist [phone] OPHELIA MITCHELL Pharmacy Student [phone] [facility] (SHADE HENDRIX) Orthopedic Surgeon DREW BLOOD Primary Care Provider Assessment Encounter Date Assessment Date Assessment LastModified by Organization Details LastModified Time 07/17/2024 07/17/2024 Assessment & Plan: 1. Left Groin Pain and Foot Vein Swelling: -Likely related to vascular congestion or venous insufficiency, possibly due to pelvic vein issues or post-surgical changes. -No signs of DVT on exam or history; Wells score low. -Refer back to vascular surgery for further evaluation of: -Pelvic venous congestion -Possible pelvic floor dysfunction -Patient declined further imaging at this time but is open to specialty referral. 2. Gluteal Weakness: -Positive Trendelenburg test suggests left gluteus medius/minimus weakness. -Recommend physical therapy for gluteal strengthening. -Consider pelvic floor PT or neuromuscular evaluation if symptoms persist or worsen. 3. Resolved Lateral Epicondylitis: -No further intervention needed unless symptoms recur. 4. Weight Management & Sleep Apnea: -Patient interested in discussing weight loss as part of long-term pain and sleep apnea management. -CPAP intolerance noted , consider discussing alternative therapies at next visit. 5. Follow-up: Return visit in 1 month to reassess hip and weight management plan, and revisit CPAP alternatives. charla Not available 07/17/2024 18:48:41 Plan of Treatment Reminders Order Date Submit Date Provider Last Modified By Organization Details Last Modified Time Details Appointments FOLLOW UP 30MIN 2024 10:30A M DEEDEE DAVIS IN, [employer]MING MACHINE OPERATOR-BC Not available Not available Not available PE EST 2025 03:00P M Drew Blood MD Not available Not available Not available Lab BMP, serum or plasma 2024 JUAN [facility] (Centralized Electronic Ordering - All Locations), Patient Can Go To The Location Of Their Choice, [id number] 01/22/2025 18:06:01 Referral sleep medici ne referr gerry peres has hx of ARIN, refuse s CPAP. Report s improv ement of sympto ms with recent weight loss and initia tion of medica tion for weight loss. Referr ing for repeat evalua tion. 2024 [facility] Sleep Medicine Services, [address] [place], [address], 01/03/2025 10:25:42 physic al therap ist referr gerry Rohit Laishaciera peres has 1 month of left lower leg pain, worsen ed with lying flat on back/s tomach , elevat ion of leg. Able to bear weight on leg. No s/sx of BEVERLY. Ordere d imagin g of lumbar spine and left hip. 2024 025 [facility] Therapy, [address], [place], [address], 12/19/2024 13:56:24 physic al therap ist referr al 2024 025 [email or web address] Not available 01/13/2025 09:19:26 vascul ar ramonita n referr al 2024 025 [email or web address], [address] [facility], [place], [address], 01/17/2025 11:12:27 physic al therap ist referr al - Please see for elbow pain consis tent with miroslava velazquez 2024 025 [email or web address] Not available 10/14/2024 13:37:17 Procedures None record ed. Surgeries None record ed. Imaging XR, lumbar spine - Patien t presen ting with possib le radicu lopath y. XRay left side to r/o bony change s that may contri bute to radicu lopath y. 2024 025 [facility], [address] [place], [address], 12/26/2024 15:15:24 XR, hip, unilat eral - Patien t presen ting with possib le radicu lopath y. XRay left side to r/o bony change s that may contri bute to radicu lopath y. 2024 025 [email or web address], [address] [place], [address], 01/01/2025 11:21:05 XR, elbow, 3 or more view 2024 025 [facility], [address] [place], [address], 05/01/2024 09:09:44 Medication Orders ibupro fen 800 mg tablet [address] [facility] #[id number], [address], [place], [address], 01/22/2025 10:55:11 amlodi pine 5 mg tablet [address] [facility] #[id number], [address], [place], [address], 01/22/2025 10:55:13 lisino pril 20 mg tablet [address] [facility] #[id number], [address], [place], [address], 01/22/2025 10:55:15 lisino pril 10 mg tablet [address] [facility] #[id number], [address], [place], [address], 01/22/2025 10:47:30 Patient TargetsNo targets recorded. Patient Instructions Encounter Date Encounter Id Patient Instructions Last Modified By Organization Details Last Modified Time 04/17/2024 [id number] tennis elbow: exercises [email or web address] Not available 04/17/2024 11:24:17 tennis elbow: care instructions [email or web address] Not available 04/17/2024 11:24:18 high blood pressure: care instructions [email or web address] Not available 04/17/2024 11:24:17 learning about high blood pressure ckokar Not available 04/17/2024 11:24:17 07/17/2024 [id number] gluteal strain: rehab exercises ckokar Not available 07/17/2024 13:54:43 sleep apnea: car e instructions ckokar Not available 07/17/2024 18:50:20 high blood pressure: care instructions ckokar Not available 07/17/2024 18:50:20 learning about high blood pressure ckokar Not available 07/17/2024 18:50:20 body mass index: care instructions ckokar Not available 07/17/2024 18:50:20 learning about healthy weight ckokar Not available 07/17/2024 18:50:20 endovenous ablation for varicose veins: before your procedure ckokar Not available 07/17/2024 13:54:43 learning about endovenous ablation for varicose veins ckokar Not available 07/17/2024 13:54:42 12/18/2024 [id number] I have reviewed the note and agree with the assessment and plan of care. ckokar Not available 12/18/2024 17:27:31 01/01/2025 [id number] sleep apnea: car e instructions Not available 01/01/2025 10:14:03 high blood pressure: care instructions Not available 01/01/2025 10:14:03 learning about high blood pressure Not available 01/01/2025 10:14:03 I have reviewed the note and agree with the assessment and plan of care. [email or web address] Not available 01/01/2025 18:47:00 01/22/2025 [id number] high blood pressure: care instructions Not available [...] the patient. MRI order has been placed. charla Not available 02/06/2025 12:55:49 Reason for Referral Physical Therapist Referral for Lateral epicondylitis Please see for elbow pain consistent with lateral epicondylitis Referring Physician: Drew Blood [facility] Medicine, Encounter Date: 04/17/2024 Vascular Surgeon Referral fo r Venous varices Referring Physician: Drew Blood [facility] Medicine, Encounter Date: 07/17/2024 Physical Therapist Referral for Strain of muscle of lower limb Referring Physician: Drew Blood [facility] Medicine, Encounter Date: 07/17/2024 Physical Therapist Referral for Pain of left calf Patient has 1 month of left lower leg pain, worsened with lying flat on back/stomach, elevation of leg. Able to bear weight on leg. No s/sx of BEVERLY. Ordered imaging of lumbar spine and left hip. Referring Physician: Deedee Alexis [facility] Medicine, Encounter Date: 12/18/2024 Sleep Medicine Referral for Obstructive sleep apnea syndrome Patient has hx of ARIN, refuses CPAP. Reports improvement of symptoms with recent weight loss and initiation of medication for weight loss. Referring for repeat evaluation. Referring Physician: Deedee Alexis [facility] Medicine, Encounter Date: 01/01/2025 Results Created Date Observation Date Name Description Value Unit Range Abnormal Flag Note LastModifiedBy Organization Detail LastModifiedTime 01/23/2001/2201/22/2025 BASIC METAB OLIC PANEL (8) glucose 86 mg/dL 70-99 normal Not Available [facility] ([facility]) [address] [place], [address], 01/22/2025 18:06:01 01/23/20 25 01/22/2025 BASIC METAB OLIC PANEL (8) BUN 15 mg/dL 8-27 normal Not Available [facility] ([facility]) [address] [place], [address], 01/22/2025 18:06:01 01/23/2001/22/2025 BASIC METAB OLIC PANEL (8) creatinine 0.94 mg/dL 0.76-1 .27 normal Not Available [facility] ([facility]) [address] [place], [address], 01/22/2025 18:06:01 01/23/20 25 01/22/2025 BASIC METAB OLIC PANEL (8) eGFR 89 mL/mi n/1.7 3 >59 normal Not Available [facility] ([facility]) [address] [place], [address], 01/22/2025 18:06:01 01/23/20 25 01/22/2025 BASIC METAB OLIC PANEL (8) BUN/creatini ne ratio 16 10-24 normal Not Available [facility] ([facility]) [address] [place], [address], 01/22/2025 18:06:01 01/23/20 25 01/22/2025 BASIC METAB OLIC PANEL (8) sodium 137 mmol/ L 134-14 4 normal Not Available [facility] ([facility]) [address] [place], [address], 01/22/2025 18:06:01 01/23/20 25 01/22/2025 BASIC METAB OLIC PANEL (8) potassium 4.2 mmol/ L 3.5-5. 2 normal Not Available [facility] ([facility]) [address] [facility], [place], [address], 01/22/2025 18:06:01 01/23/2001/22/2025 BASIC METAB OLIC PANEL (8) chloride 101 mmol/ L 96-106 normal Not Available [facility] ([facility]) [address] [place], [address], 01/22/2025 18:06:01 01/23/20 25 01/22/2025 BASIC METAB OLIC PANEL (8) carbon dioxide, total 26 mmol/ L 20-29 normal Not Available [facility] ([facility]) [address] [facility], [place], [address], 01/22/2025 18:06:01 01/23/2001/22/2025 BASIC METAB OLIC PANEL (8) calcium 9.7 mg/dL 8.6-10 .2 normal Not Available [facility] ([facility]) [address] [facility], [place], [address], 01/22/2025 18:06:01 12/27/1912/25/2024 XR, lumba r spine No observ ation record ed. [facility] [address], [place], [address], 12/27/2024 13:09:40 Result Notes None recorded. Problems Name Problem SNOMED Code Status Onset Date Resolution Date Notes Provider Name and Address Organization Details Recorded Time Obstruct edda sleep apnea syndrome 47272130 Active Refuses CPAP Rafa Mcpherson MD [address] [facility] [address], [facility] [place], [address], [facility] 6 11:40:10 Impacted cerumen 69282875 Completed 05/25/2023 Nallely encinas [place] null, [facility] 4 10:57:15 Upper abdomina l pain 30755205 Completed 02/13/2018 Jayesh Mcallister MD [address], [place], [address], [facility] 8 11:18:01 Chest pain 14597053 Completed 07/20/2016 Nallely encinas [place] null, [facility] 7 10:42:32 Influenz a 1986484 Completed 03/20/2020 Nallely encinas [place] null, [facility] 1 10:42:12 Tear of medial meniscus of knee 960772438 Active Rafa Mcpherson MD [address] [facility] [address], [place], [address], [facility] 6 13:21:49 Pleuriti c pain 2945097 Completed 09/09/2018 Rafa Mcpherson MD [address] [facility] [address], [place], [address], [facility] 9 22:43:23 Right upper quadrant pain 152315640 Completed 09/09/2018 Rafa Mcpherson MD [address] [facility] [address], [place], [address], [facility] 9 22:44:18 Pneumoni a 929575084 Completed 02/13/2018 Jayesh Mcallister MD [address] [facility] [address], [place], [address], [facility] 8 11:13:21 Cellulit is and abscess of foot excludin g toe Completed 200609/17/2013 RESOLVED DATE: 10/28/19 07; RECORDED 10/28/19 07 6:57AM BY RAFA MCPHERSON MD, OFFICE VISIT Rafa Mcpherson MD [address], [place], [address], [facility] 6 11:40:09 Cellulit is and abscess of foot excludin g toe Completed 200610/07/2013 RESOLVED DATE: 10/28/19 07; RECORDED 10/28/19 07 6:57AM BY RAFA MCPHERSON MD, OFFICE VISIT Rafa Mcpherson MD [address] [facility] [address], [place], [address], [facility] 6 11:40:09 Epigastr ic pain 55125766 Completed 201109/17/2013 RECORDED 02/15/20 12 10:16AM BY NALLELY LOFTON MA, ANNOTATI ON/ADDEN DUM Rafa Mcpherson MD [address] [facility] [address], [place], [address], [facility] 6 11:40:10 Chest pain 18719570 Completed 201109/17/2013 IMPRESSI ON: HE IS GETTING STRESS TEST IN 2 WEEKS. DOUBT CARDIAC CAUSE. COULD BE GI RELATED. BUT DOES NOT WANT TO TAKE OMEPRAZO LE BECAUSE HATES BEING ON MEDS.; RECORDED 02/15/20 12 10:16AM BY NALLELY LOFTON MA ANNOTATI ON/ADDEN DUM Nallely encinas [place] null, [facility] 7 10:42:32 Kidney stone 93801265 Completed 201109/17/2013 RECORDED 02/15/20 12 10:16AM BY NALLELY LOFTON MA, ANNOTATI ON/ADDEN DUM Rafa Mcpherson MD [address] [facility] [address], [place], [address], [facility] 6 11:40:09 Blood in urine 45933288 Completed 201109/17/2013 IMPRESSI ON: NEG URINE HERE NO EVIDENCE OF INFECTIO N; RECORDED 02/15/20 12 10:16AM BY NALLELY LOFTON MA, ANNOTATI ON/ADDEN DUM Rafa Mcpherson MD [address] [facility] [address], [place], [address], [facility] 6 11:40:09 Hemoptys is 76720569 Completed 201109/17/2013 IMPRESSI ON: CXR NORMAL. 1 EVENT. SUSPECT POSTNASA L DRIP FROM EITHER ALLERGIE S OR VIRAL URI. HE DOES NOT WANT TO TAKE FLONASE OR ANY OTHER MEDICINE S THAT COULD HELP THIS.; RECORDED 02/15/20 12 10:16AM BY NALLELY LOFTON MA, GUY ON/NIKKI Mcpherson MD [address] [facility] [address], [place], [address], [facility] 6 11:40:09 Influenz a vaccine needed 03211864469 06 Completed 201109/17/2013 RECORDED 02/15/20 12 10:17AM BY NALLELY LOFTON MA, GUY ON/NIKKI Mcpherson MD [address] [facility] [address], [place], [address], [facility] 6 11:40:10 Shoulder joint pain 483365490 Completed 201109/17/2013 RECORDED 02/15/20 12 10:17AM BY NALLELY LOFTON MA, ANNOTATI ON/NIKKI Mcpherson MD [address] [facility] [address], [place], [address], [facility] 6 11:40:09 Epigastr ic pain 94529294 Completed 201110/07/2013 RECORDED 02/15/20 12 10:16AM BY NALLELY LOFTON MA, GUY ON/NIKKI Mcpherson MD [address] [facility] [address], [place], [address], [facility] 6 11:40:10 Chest pain 87764502 Completed 201110/07/2013 IMPRESSI ON: HE IS GETTING STRESS TEST IN 2 WEEKS. DOUBT CARDIAC CAUSE. COULD BE GI RELATED. BUT DOES NOT WANT TO TAKE OMEPRAZO LE BECAUSE HATES BEING ON MEDS.; RECORDED 02/15/20 12 10:16AM BY NALLELY LOFTON MA, GUY ON/ADDEN DUM [facility] [facility] 10:42:32 Kidney stone 56904703 Completed 201110/07/2013 RECORDED 02/15/20 12 10:16AM BY NALLELY LOFTON MA, GUY ON/ADDEN DUM Rafa Mcpherson MD [address] [facility] [address], [place], [address], [facility] 6 11:40:09 Blood in urine 70429322 Completed 201110/07/2013 IMPRESSI ON: NEG URINE HERE NO EVIDENCE OF INFECTIO N; RECORDED 02/15/20 12 10:16AM BY NALLELY LOFTON MA, GUY ON/ADDEN BRITTANY Mcpherson MD [address] [facility] [address], [place], [address], [facility] 6 11:40:09 Hemoptys is 75058633 Completed 201110/07/2013 IMPRESSI ON: CXR NORMAL. 1 EVENT. SUSPECT POSTNASA L DRIP FROM EITHER ALLERGIE S OR VIRAL URI. HE DOES NOT WANT TO TAKE FLONASE OR ANY OTHER MEDICINE S THAT COULD HELP THIS.; RECORDED 02/15/20 12 10:16AM BY NALLELY LOFTON MA, ANNOTATI ON/ADDEN DUM Rafa Mcpherson MD [address] [facility] [address], [place], [address], [facility] 6 11:40:09 Influenz a vaccine needed 58859355624 06 Completed 201110/07/2013 RECORDED 02/15/20 12 10:17AM BY NALLELY LOFTON MA, GUY ON/ADDCIERA Mcpherson MD [address] [address], [place], [address], [facility] 6 11:40:10 Shoulder joint pain 281979318 Completed 201110/07/2013 RECORDED 02/15/20 12 10:17AM BY NALLELY LOFTON MA, DARIONATI ON/ADDEN BRITTANY Mcpherson MD [address], [facility] [place], [address], [facility] 6 11:40:09 Cellulit is of digit 05441094 Completed 201109/17/2013 STORY: TRAUMA AND POSSIBLE INFECTIO N RIGHT GREAT TOE; RECORDED 02/18/20 12 8:42AM BY DARION CHRISATI ON/NIKKI Mcpherson MD [address], [place], [address], [facility] 6 11:40:09 Injury of knee 664098895 Completed 201109/17/2013 RECORDED 02/18/20 12 8:42AM BY GUY CHRIS ON/ADDCIERA Mcpherson MD [address], [place], [address], [facility] 6 11:40:10 Cellulit is of digit 52446237 Completed 201110/07/2013 STORY: TRAUMA AND POSSIBLE INFECTIO N RIGHT GREAT TOE; RECORDED 02/18/20 12 8:42AM BY GUY CHRIS ON/ADDCIERA Mcpherson MD [address], [place], [address], [facility] 6 11:40:09 Injury of knee 239195593 Completed 201110/07/2013 RECORDED 02/18/20 12 8:42AM BY DARION CHRISATI ON/ADDCIERA Mcpherson MD [address], [place], [address], [facility] 6 11:40:10 Follow-u p encounte r Completed 201309/17/2013 RECORDED 06/07/19 14 11:05AM BY NALLELY LOFTON MA, ANNOTATI ON/ADDEN DUM Rafa Mcpherson MD [address] [facility] [address], [place], [address], [facility] 6 11:40:10 Malaise and fatigue 399440541 Completed 201309/09/2018 Rafa Mcpherson MD [address] [facility] [address], [place], [address], [facility] 9 22:44:20 Gastroes ophageal reflux disease 025198707 Active 2013 Nallely encinas [place] null, [facility] 6 09:20:52 Hyperlip idemia 73195388 Active 2013 BRIAN Fung, [facility] 6 09:21:06 Hypersom ziggy 84899078 Completed 201307/21/2015 RECORDED 06/07/19 14 12:05PM BY RAFA MCPHERSON MD, OFFICE VISIT Rafa Mcpherson MD [address] [facility] [address], [place], [address], [facility] 6 11:40:10 Essentia l hyperten steffanie 16655805 Active 2013 Nallely encinas [place] null, [facility] 6 09:21:09 Contact dermatit is due to plants, except food Completed 201309/17/2013 RECORDED 06/07/19 14 11:05AM BY NALLELY LOFTON MA, ANNOTATI ON/ADDEN DUM Rafa Mcpherson MD [address] [facility] [address], [place], [address], [facility] 6 11:40:09 Renal colic 5448848 Active 2013 IMPRESSI ON: HX OF LARGE STONE 2010 TX WITH LASER AND STENT, NOW RETURN OF PAIN, WILL REFER TO UROLOGY, GET IMAGING FIRST IF THEY PREFER, DOES NOT WANT PAIN MEDS, HYDRATE AND WILL CHECK URINE FOR INFECTIO N BUT URINE DIP IS CLEAN, CHECK CULTURE, PT TO CALL IF SIGNS OF ILLNESS, FEVER; Nallely encinas MA null, [facility] 6 09:21:16 Follow-u p encounte r Completed 201310/07/2013 RECORDED 06/07/19 14 11:05AM BY NALLELY LOFTON MA, ANNOTATI ON/NIKKI Mcpherson MD [address] [address], [place], [address], [facility] 6 11:40:10 Contact dermatit is due to plants, except food Completed 201310/07/2013 RECORDED 06/07/19 14 11:05AM BY NALLELY LOFTON MA, ANNOTATI ON/NIKKI Mcpherson MD [address] [address], [place], [address], [facility] 6 11:40:09 Body mass index 30+ - obesity 104426772 Active 2022 Kathia Day PA-C [address] [address], [place], [address], [facility] 3 09:14:55 Pain in left lower limb 961096956 Active 2023 OLIVER Rivas [address] [address], [place], [address], [facility] 4 11:11:30 Venous varices 618120319 Active 2023 OLIVER Rivas [address] [address], [place], [address], [facility] 4 11:16:22 Strain of flexor muscle of left hip 25611813970 029766 Active 2023 OLIVER Rivas [address] [facility] [address], [place], [place], [address], [facility] 4 11:19:18 Tubular adenoma 308200365 Active 2023 Kathia Day PA-C [address] [facility] [address], [place], [address], [facility] 4 10:16:41 Pain of left calf 44688618387 45959 Active 2024 [address] [address], [place], [address], [facility] 5 10:06:52 Blood pressure above referenc e range 76188313 Active 2024 DE[place] DAVIS [address], [place], [address], [facility] 5 12:48:52 Lumbar radiculo brian 952567318 Active 2024 DE[place]EE DAVIS [address], [place], [address], [facility] 5 10:48:25 Problem Notes None recorded. Procedures Surgical History Date Name Laterality Status Provider Name and Address Organization Details Recorded Time 08/29/19 21 Colonoscopy completed Sarah Sow [facility] 09/08/2020 12:53:01 03/27/19 16 EGD completed Юлия Abarca [facility] 04/01/2015 10:26:48 Tonsillectomy completed Nallely velazquez MA [facility] 09/25/2013 09:57:37 Hernia Repair completed Nallely velazquez MA [facility] 09/25/2013 09:57:37 Fragmenting of kidney stone completed Nallely velazquez MA [facility] 03/20/2020 10:41:58 Imaging Results None recorded. Procedure Notes None recorded. Medical Equipment None Reported. Allergies Allergen ID Allergen Name Allergen Category Reaction Reaction Severity Criticality Documentation Date Start Date Code Code System Note Provider Name and Address Organization Details Recorded Time 11654 No known allergy (situatio n) Not available Not available Not available Not available 09/10/20132010 35609 6003 SNOMED COMME NT: RECOR DED 02/24 1:06P M BY MARIA ELENA BENNETT MA, OFFIC E VISIT ; Not Available [facility] 4 13:29:01 32100 doxycycli ne Not available other Not available Not available 10/09/2014 3640 RxNorm taken for Lyme Disea se; made me crazy BRIAN Fung [facility] 5 10:25:49 18484 rosuvasta tin medicatio n arthralgi a (joint pain) myalgias (muscle pain) Not available Not available Not available 05/25/2023 06180 2 RxNorm BRIAN Fung [facility] 4 10:56:32 Medications Name Sig Start Date [...] route. 11/12 completed [facility] in [facility]; 05/11/21 not sure which dose he's currentl y on Not Available Not Available Not Available mohit de (weight loss) 10 mg/0.5 mL subcutane ous pen injector Inject 2.5 mg every week by subcutan eous route as directed . active 15 units (per patient) , prescrib ed by [facility] in [facility] Not Available Not Available Not Available Vitals Date Recorded Body height Body mass index (BMI) Body weight Heart rate Oxygen saturation Body temperature Systolic And Diastolic Provider Name and Address Organization Details Last Updated DateTime 5 175.26 cm 33.8 kg/m2 666780. 65 g 55 /min 97 % 97.8 [degF] 124/84 mm[Hg] Iliana Mistry MA [facility] 5 11:09:24 Date Recorded Body height Body mass index (BMI) Body weight Heart rate Oxygen saturation Body temperature Systolic And Diastolic Provider Name and Address Organization Details Last Updated DateTime 5 175.26 cm 33.5 kg/m2 135434. 47 g 88 /min 98 % 97.2 [degF] 121/77 mm[Hg] Dimitri savage MA [facility] 5 13:28:41 Date Recorded Body height Body mass index (BMI) Body weight Heart rate Oxygen saturation Body temperature Systolic And Diastolic Systolic And Diastolic Provider Name and Address Organization Details Last Updated DateTime 5 175.26 cm 33.5 kg/m2 527638. 47 g 65 /min 98 % 97.9 [degF] 151/89 mm[Hg] 140/90 mm[Hg] Urvashi García MA [facility] 5 09:48:35 Date Recorded Body height Body mass index (BMI) Body weight Heart rate Oxygen saturation Body temperature Systolic And Diastolic Provider Name and Address Organization Details Last Updated DateTime 5 175.26 cm 33.5 kg/m2 528318. 47 g 67 /min 97 % 97.5 [degF] 147/91 mm[Hg] Alethea Crenshaw MA [facility] 5 09:38:10 Date Recorded Body height Body mass index (BMI) Body weight Heart rate Oxygen saturation Body temperature Systolic And Diastolic Provider Name and Address Organization Details Last Updated DateTime 5 175.26 cm 33.1 kg/m2 840580. 69 g 66 /min 96 % 97.2 [degF] 120/72 mm[Hg] Dimitri savage MA [facility] 5 10:16:48 Social History Question Answer Notes LastModified by Organizat ion Details LastModified Time Tobacco Smoking Status Never Smoker BRIAN Cartwright, [facility] 09/25/2013 08:50:12 Do You Have An Advance Directive? Yes HCP [email or web address] Information not available 11/12/2021 Is Blood Transfusion Acceptable In An Emergency? Yes Information not available 10/09/2014 What Is Your Level Of Caffeine Consumption? Moderate 2 1/2cups Of Coffee Daily; [email or web address] Information not available 01/01/2025 How Much Tobacco Do You Chew? None Information not available 10/09/2014 What Type Of Diet Are You Following? REGULAR Information not available 09/25/2013 Which Illicit Or Recreational Drugs Have You Used? None Information not available 10/09/2014 Live Alone Or With Others? With Others ([employer] [email or web address] Information not available 11/12/2021 Do You Take Precautions To Prevent Distracted Driving? Yes Information not available 10/09/2014 How Often Do You Need To Have Someone Help You When You Read Instructions, Pamphlets, Or Other Written Material From Your Doctor Or Pharmacy? Sometimes Information not available 10/09/2014 Have You Served In The ? No [email or web address] Information not available 09/07/2018 Have You Or [...] Of Your Most Recent Tobacco Screening? 01/01/2025 [email or web address] Information not available 01/01/2025 How Many Children Do You Have? 4 3 Boys, 1 Girl Information not available 03/20/2020 Do You Use Protection During Sex? No Information not available 10/09/2014 Do You Use Your Seat Belt Or Car Seat Routinely? Yes Information not available 08/28/2023 Seat Belts Used Routinely Yes [email or web address] Information not available 11/12/2021 Are You Sexually Active? Yes Information not available 10/09/2014 Smoke Alarm In Home Yes [email or web address] Information not available 11/12/2021 Do You Have [...] use any illicit or recreational drugs? No [email or web address] Information not available 11/12/2021 Do you or have you ever used any other forms of tobacco or nicotine? No [email or web address] Information not available 11/12/2021 What is your level of alcohol consumption? None Information not available 10/09/2014 Do you or have you ever used smokeless tobacco? Never used smokeless tobacco [email or web address] Information not available 05/02/2019 Are you currently employed? No Information not available 08/28/2023 Are you able to walk independently without assistance or assistive devices? YESWOREST [email or web address] Information not available 11/12/2021 Are you able to care for yourself independently? 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 Never used electronic cigarettes [email or web address] Information not available 11/12/2021 What is your [...] 50 mcg/0.25mL dose 1 completed BRIAN Bonds, [facility] 03/26/2021 08:44:52 COVID-19, mRNA, LNP-S, PF, 100 mcg/0.5mL dose or 50 mcg/0.25mL dose 1 completed BRIAN Bonds [facility] 03/26/2021 08:44:52 Tdap 6 completed Not Available [facility] 03/16/2019 02:21:45 Influenza, split virus, quadrivalent , PF 6 completed Not Available [facility] 03/16/2019 02:22:04 Tdap 5 completed Not Available [facility] 01/22/2025 10:04:25 Influenza, split virus, quadrivalent , PF 8 completed Not Available [facility] 03/16/2019 02:22:22 Influenza, split virus, quadrivalent , PF 2 cancelled patient objection Drew Blood MD [address], [address], [facility] 11/12/2021 10:27:16 Past Encounters Encounter ID Performer Location Encounter Start Date Encounter Closed Date Diagnosis/Indication Diagnosis SNOMED-CT Code Diagnosis ICD10 Code Diagnosis IMO Codes Diagnosis Note [id number] Rafa Mcpherson MD Main Office [address] [place] [address] 09/25/2013 09:47:46 09/25/2013 10:45:00 Adult health examination 513743298 Body mass index 30+ - obesity 047358412 Essential hypertension 16391431 Gastroesop hageal reflux disease 280021107 Obstructiv e sleep apnea syndrome 24333288 Screening for malignant neoplasm of colon 501855694 Refuses colonoscop y. [id number] [employer] [facility]ce [address] [facility] [place] [address] 10/09/2006 00:00:00 [id number] [employer] erce [address] [facility] [facility] [place] [address] 10/09/2006 00:00:00 [id number] auto[employer] erce [address] [facility] [address] [address] [place] [address] 10/09/2006 00:00:00 [id number] auto[employer] erce [address] [facility] [address],[place] [address] [place] [address] 10/10/2006 00:00:00 [id number] [employer] erce [address] [facility] [address],[place] [address] [place] [address] 10/12/2006 00:00:00 [id number] [employer] erce [address] [facility] [address],[place] [address] [place] [address] 10/12/2006 00:00:00 [id number] [employer] erce [address] [facility] [address],[place] [address] [place] [address] 10/12/2006 00:00:00 [id number] [employer]ce [address] [facility],[place] [address] [place] [address] 10/12/2006 00:00:00 [id number] auto[employer] erce [address] [facility],[place] [address] [place] [address] 10/25/2006 00:00:00 [id number] auto[employer] erce [address] [facility],[place] [address] [place] [address] 10/25/2006 00:00:00 [id number] auto[employer] erce [address] [facility],[place] [address] [place] [address] 10/25/2006 00:00:00 [id number] [employer] erce [address] [facility],[place] [address] [place] [address] 10/25/2006 00:00:00 [id number] auto[employer] erce [address] [facility] [address],[place] [address] [place] [address] 07/15/2008 00:00:00 [id number] auto[employer] erce [address] [facility],[place] [address] [place] [address] 07/15/2008 00:00:[address] [id number] [address]ce [address],[place] [address] [place] [address] 07/15/2008 00:00:00 [id number] auto[employer] erce [address],[place] [address] [place] [address] 02/24/2011 00:00:00 [id number] auto[employer] erce [address] [facility] [address],[place] [address] [place] [address] 04/11/2011 00:00:00 [id number] auto[employer] erce [address] [facility] [address],[place] [address] [place] [address] 04/11/2011 00:00:00 [id number] auto[employer] erce [address] [facility] [address],[place] [address] [place] [address] 07/20/2011 00:00:00 [id number] auto[employer] erce [address] [facility],[place] [address] [place] [address] 07/20/2011 00:00:00 [id number] auto[employer] erce [address] [facility],[place] [address] [place] [address] 07/20/2011 00:00:00 [id number] auto[employer]Comm erce [address] [facility],[place] [address] [place] [address] 08/11/2011 00:00:00 [id number] auto[employer]Comm erce [address] [facility],[place] [address] [place] [address] 08/11/2011 00:00:00 [id number] auto[employer]Comm erce [address] [facility],[place] [address] [place] [address] 02/15/2012 00:00:00 [id number] auto[employer]Comm erce [address] [facility],[place] [address] [place] [address] 02/15/2012 00:00:00 [id number] auto[employer]Comm erce [address] [facility],[place] [address] [place] [address] 02/18/2012 00:00:00 [id number] autoEComm erce [address] [facility] [address],[place] [address] [place] [address] 02/18/2012 00:00:00 [id number] auto[employer]Comm erce [address] [facility], [address] [place] [address] 02/18/2012 00:00:00 [id number] auto[employer]Comm erce [address] [facility],[place] [address] [place] [address] 06/06/2013 00:00:00 [id number] Rafa Mcpherson MD Main Office [address] [address] [place] [address] 03/27/2014 10:11:40 03/27/2014 11:07:51 Essential hypertension 85922500 Obstructiv e sleep apnea syndrome 51833056 Needs to set up CPAP titration Impacted cerumen 46968310 Gastroesop hageal reflux disease 691128393 [id number] Rafa Mcpherson MD Main Office [address] [address] [place] [address] 10/09/2014 09:54:37 10/09/2014 11:07:13 Essential hypertension 34978542 Obstructiv e sleep apnea syndrome 00697169 Refuses CPAP. Renal colic 9640700 Gastroesop hageal reflux disease 099139880 Improved Body mass index 30+ - obesity 715360346 [id number] Rafa Mcpherson MD Main Office [address] [address] [place] [address] 10/31/2014 10:09:21 10/31/2014 11:47:55 Essential hypertension 47668791 Gastroesop hageal reflux disease 648655201 Notes frequent choking and occasional severe symptoms of GERD. Chest pain 78758780 [id number] Rafa Mcpherson MD Main Office [address] [address] [place] [address] 07/21/2015 10:26:27 07/21/2015 11:42:23 Essential hypertension 20229362 I10 Tear of me dial meniscus of knee 971505107 S83.241A Medial joint line tenderness . Rule out meniscal injury. Body mass index 30+ - obesity 130059983 Z68.36 Hyperlipidemia 36578132 E78.5 [id number] Rafa Mcpherson MD Main Office [address] [address] [place] [address] 09/23/2015 09:23:48 09/23/2015 10:21:41 Pleuritic pain 1976542 R07.81 Right uppe r quadrant pain 163063409 R10.11 [id number] Rafa Mcpherson MD Main Office [address] [address] [place] [address] 10/28/2015 09:15:04 10/28/2015 10:29:02 Adult health examination 895103667 Z00.00 Essential hypertension 93644416 I10 Hyperlipidemia 47748775 E78.5 Administra tion of diphtheria, pertussis, and tetanus vaccine 937128713 Z23 Gastroesop hageal reflux disease 047837641 K21.9 Notes frequent choking and occasional severe symptoms of GERD. Needs infl uenza immunization 474427363 Z23 Obstructiv e sleep apnea syndrome 04445097 G47.33 Refuses CPAP. Body mass index 30+ - obesity 351496550 E66.9 [id number] Anjel Massey MD Main Office [address] [address] [place] [address] 03/12/2016 11:11:48 03/12/2016 11:34:23 Acute pharyngitis 284241234 J02.9 Edema of uvula 039092705 J39.8 this appears to have resolved. I advised him to continue NSAIDs prn. [id number] Rafa Mcpherson MD Main Office [address] [address] [place] [address] 07/20/2016 10:28:44 07/20/2016 11:22:46 Pain of multiple joints 75320781 M25.50 [id number] Rafa Mcpherson MD Main Office [address] [address] [place] [address] 09/19/2016 15:51:54 09/19/2016 16:58:20 Left flank pain 200902942 R10.9 [id number] William Day PA-C Main Office [address] [address] [place] [address] 04/05/2017 08:40:08 04/05/2017 09:34:27 Essential hypertension 80639815 I10 Body mass index 30+ - obesity 267965665 Z68.35 Lateral epicondylitis 20 0607840 M77.11 [id number] Kathia Day PA-C Main Office [address] [address] [place] [address] 05/12/2017 13:26:04 05/12/2017 13:44:02 Productive cough 60436898 R05 ASthmatic bronchitis vs. pneumonia. Will do chest XRAy and treat accordingl y. Cough meds , rescue inhaler , rest , fluids and f/u in the office in the week if still symptomati c. Dyspnea 730243460 R06.00 [id number] Anjel Massey MD Main Office [address] [address] [place] [address] 08/11/2017 11:29:37 08/11/2017 12:11:15 Pain in testicle 95854958 N50.819 Possible recurrent inguinal hernia on the left vs recurrent groin pain with activity. Also may have peyronies disease. He is concerned about prostate cancer so we will do a PSA. [id number] Jayesh Mcallister MD Main Office [address] [address] [place] [address] 02/13/2018 10:44:54 02/13/2018 11:32:38 Tear of medial meniscus of knee 093278556 S83.241A NSAID refill. Advised to take with food and monitor for GI upset/blee d. Advised to have labs from March done caleb. Lesion of external ear 170733623 H61.891 Needs infl uenza immunization 107444791 Z23 Screening for malignant neoplasm of colon 535131483 Z12.11 Due for screening this Spring. [id number] Rafa Mcpherson MD Main Office [address] [address] [place] [address] 09/07/2018 13:33:33 09/07/2018 15:08:22 Essential hypertension 14465619 I10 Hepatitis C screening 41 1084936 Z11.59 Adult heal th examination 169165192 Z00.00 Tear of me dial meniscus of knee 762278991 S83.241A Medial joint line tenderness . Rule out meniscal injury. Hyperlipidemia 83219412 E78.5 Fatigue 66372955 R53.83 Gastroesop hageal reflux disease 459018649 K21.9 Stable on PPI Obstructiv e sleep apnea syndrome 12123571 G47.33 Refuses CPAP. Body mass index 30+ - obesity 332766350 E66.01 Z68.35 HTN [id number] Jayesh Mcallister MD Main Office [address] [facility] [address] [place] [address] 10/26/2018 13:18:20 10/26/2018 14:09:36 Testicular mass 15358751 N50.89 US today or early next week., pt to call or go to ED for any acute pain in the testicle. No evidence of torsion or epididymit is on exam today. Followup with urology. If worsening to call, would consider treating with antibiotic s if not better. Induration penis plastica 4450045 N48.6 pt says this does not bother him, can discuss during ov for testicular pain [id number] Anjel Massey MD Main Office [address] [address] [place] [address] 05/02/2019 10:47:54 05/02/2019 11:41:12 Low back pain 925324286 M54.5 CT showed degenerati ve changes at L4-L5 with left tubercle sclerosis. suspect pain is MSK, as he also has spasm to left paraspinal s. Recommend heat 4 times daily, gentle stretching as tolerated. meloxicam and flexeril as directed, no driving or alcohol with med. alos stretch hamstrings as tightness may be pulling his lower back down and causing pain. call / return for worsening or concerns. Essential hypertension 56505344 I10 well controlled . Renal colic 2742033 N23 had ED visit 04/[address] scan [id number] Anjel Massey MD Main Office [address] [facility] [address] [place] [address] 03/20/2020 10:37:24 03/20/2020 11:21:43 Adult health examination 137975495 Z00.00 HM - overdue for colonoscop y. we will schedule GI appt for him Essential hypertension 13017339 I10 Repeat BP improved. Tear of me dial meniscus of knee 674455014 S83.241A Hyperlipidemia 98153784 E78.5 Fatigue 62781785 R53.83 Gastroesop hageal reflux disease 978165670 K21.9 Stable on PPI Obstructiv e sleep apnea syndrome 96923093 G47.33 Refuses CPAP. Body mass index 30+ - obesity 642129581 E66.01 Z68.35 Screening for malignant neoplasm of colon 906924072 Z12.11 Screening for malignant neoplasm of prostate 068929497 Z12.5 [id number] Kathia Day PA-C Main Office [address] [address] [place] [address] 10/21/2020 10:59:20 10/21/2020 11:41:07 Lightheadedness 622661085 R42 retest electrolyt es and magnesium. Glucose is normal but will repeat bmp. A1c is 5.2%. Hyperglycemia 16076537 R 73.9 normal A1c Edema of l ower extremity 184714610 R60.0 Ganglion c yst of left foot 9657338358 655417 M67.472 xray and if necessary , will refer to an orthopedic for an excision. Obstructiv e sleep apnea syndrome 15375570 G47.33 refer to sleep medicine for reeval and mask fitting. [id number] Anjel Massey MD Telehealt h [address] [facility] [address] [place] [address] 01/07/2021 08:07:22 01/07/2021 09:46:20 Acute sinusitis 86129001 J01.90 Cough 57189519 R05.1 [id number] Drew Blood MD Main Office [address] [address] [place] [address] 01/22/2021 09:50:03 01/22/2021 10:46:46 Essential hypertension 26469194 I10 Low sodium diet discussedC ounseled on medication adherenceC ounseled on diet/exerc iseAdvised to keep BP daily BP log and technique counseled. BP above goal, not open to change in medication at this time. Asymptomat ic aware of risk,has bp cuff at home. Will continue lisinopril at current dose advised weight loss with diet and exercise, will have [employer] follow BP and and get office BP at next in Feb 2021. Fatigue 32608829 R53.83 Hyperlipidemia 63382850 E78.5 Low back pain 057828288 M54.50 Take ibuprofen for chronic pack pain PRN.Reques t refill.Ris k of longer term NSAID use reviewed. Cough 92620461 R05.9 Advised cough can take a few weeks to resolve,Ad vised honey, also sent tessalon pearls as needed if no improvemen t. [id number] Drew Blood MD Main Office [address] [facility] [address] [place] [address] [place] [address] 05/11/2021 09:24:25 05/11/2021 10:29:53 Body mass index 30+ - obesity 015558442 Z68.35 Adult heal th examination 249555358 Z00.00 Patient was counseled on healthy diet, exercise and nutrition due to Body mass index is 35.7 kg/m . Last PSADate: 03/20/20Res ult: 0.7Plan: discussed usptf guideline declined screening for now Last Colonoscop y:Date: 08/28/20Resu lt: wnlPlan: repat 5 yrs per GI given prior hx of 4 tubular adenoma Vaccines:T dAP: 10/28/15Zos ter: script provided.P CV13: not orcWFDJ23: not dueInfluen za: declined,C ovid: 04/24/20, 05/22/20 Routine labs today Immunizati on status reviewed. Will screen based on risk factors. Regular dental and ophtho care advised as well as seat belt and sunscreen use. Distracted driving discussed. Medication reconciled . Essential hypertension 37815706 I10 Low sodium diet discussedC ounseled on medication adherence - bp stable with current regimen.Co unseled on diet/exerc ise Varicella vaccination 68 710919 Z23 Obesity 636698401 E66.9 - Diet and exercise discussed- Patient made aware of risks of obesity- Encouraged to loose weight. Goal set to loose weight at 1-1.5 Lbs/week- Avoid starchy and fatty food- Encouraged use of green vegetables and fruits- Doing well on wegovy, tolerating . Once on max dose he will tell me and will get BMP, getting from shot shop. No hx of pancreatit is or thyroid cancer. Gastroesop hageal reflux disease 624679357 K21.9 Discussed taper off PPI will do famotidine .Food trigger discussed advised head of bed elevation. Hyperlipidemia 00881215 E78.5 Discussed statin use due to ascvd he wants to try lifestyle changes first, understand risk.encou raged diet and exercise. Impacted c erumen in right ear 8736133426 198714 H61.21 Debrox sent.Avoid q-tips [id number] Anjel Massey MD Main Office [address] [facility] [address] [place] [address] 03/26/2021 08:39:11 03/26/2021 09:25:00 Influenza vaccination declined 384977119 Z28.21 Essential hypertension 68614777 I10 Uncontroll ed HTN, high caffeine intake. Continue lisinopril 20 mg. Add amlodipine 5 mg daily.Lowe r caffine to 1 cup of regular coffee per day. Continue testing BP daily. Lower sodium. Return in 2 weeks. [id number] Drew Blood MD Main Office [address] [facility] [address] [place] [address] 11/12/2021 09:15:34 11/12/2021 10:24:45 Obesity 383961208 E66.9 - Diet and exercise discussed- Patient made aware of risks of obesity- Encouraged to loose weight. Goal set to loose weight at 1-1.5 Lbs/week- Avoid starchy and fatty food- Encouraged use of green vegetables and fruits-Los t weight wants drug holiday. Body mass index 30+ - obesity 194414184 Z68.35 Essential hypertension 24272515 I10 Low sodium diet discussedC ounseled on medication adherence - bp stable with current regimen.Co unseled on diet/exerc ise Gastroesop hageal reflux disease 792884272 K21.9 Resolved. Hyperlipidemia 63051917 E78.5 Discussed statin use due to ascvd he wants to try lifestyle changes first, understand risk.encou raged diet and exercise. Impacted c erumen in right ear 1225377430 566173 H61.21 Debrox sent.Avoid q-tipsWe attempted to lavage but wax was hard. Reminded to use debrox will try to lavage next visit. Needs infl uenza immunization 435598326 Z23 Pain in left foot 968253 5909 92335 M79.672 Unclear etiology, does not appear to be cellulitis .Will get XRUric acid.Given cystic lesion will alos get US. Contact de rmatitis caused by urushiol from [facility] [place][note 2] 606553475 L25.5 [id number] Drew Blood MD Main Office [address] [facility] [address] [facility] [place] [address] 07/06/2022 08:57:03 07/06/2022 09:54:59 Adult health examination 522486668 Z00.00 Patient was counseled on healthy diet, exercise and nutrition due to Body mass index is 35.7 kg/m . Last PSADate: 03/20/20Res ult: 0.7Plan: discussed usptf guideline declined screening for now Last Colonoscop y:Date: 08/28/20Resu lt: wnlPlan: repat 5 yrs per GI given prior hx of 4 tubular adenoma Vaccines:T dAP: 10/28/15Zos ter rec: script provided.P CV20: not dueInfluen za: declinedCo vid: 04/24/20, 05/22/20, bivalent advised Routine labs today Immunizati on status reviewed. Will screen based on risk factors. Regular dental and ophtho care advised as well as seat belt and sunscreen use. Distracted driving discussed. Medication reconciled . Obesity 966886963 E66.9 - Diet and exercise discussed- Patient made aware of risks of obesity- Encouraged to continue trying to loose weight. Goal set to loose weight at 1-1.5 Lbs/week. Continue for another 3 months and if no additional weight loss or weight gain, pt. should be recommende d to restart Wegovy.- Avoid starchy and fatty food- Encouraged use of green vegetables and fruits Body mass index 30+ - obesity 275883430 Z68.34 Essential hypertension 01164145 I10 STable HTN on current meds. repeat labs. Follow DASH diet. F/u 3 m. Gastroesop hageal reflux disease 179177668 K21.9 stable. Hyperlipidemia 91099161 E78.5 Z00.00 Repeat fasting lipids. Discussed statin use due to ascvd he wants to try lifestyle changes first, understand risk.encou raged diet and exercise. Varicella vaccination 68 852828 Z23 Impaired f asting glycemia 546130729 R73.01 repeat fasting glucose and A1c. WE discussed that if A1c went up and fasting glucose is above norm. , he would definitely benefit from restart of GLP-1/ Obstructiv e sleep apnea syndrome 02288177 G47.33 refer to sleep medicine for reeval and mask fitting. [id number] Anjel Massey MD Main Office [address] [facility] [address] [facility] [place] [address] 05/25/2023 10:33:28 05/25/2023 11:23:08 Essential hypertension 62043114 I10 Inguinal pain 580458604 R10.2 US of scrotum and pelvis done in 2019, showed varicocele and epididymal cyst on left, otherwise normal. sx is more to the medial upper thigh. pain with internal rotation of hip. Pain in le ft lower limb 736337911 M79.605 Venous varices 447750466 I83.92 he describes claudicati on like symptoms on the left medial thigh with activity or as the day goes on. will refer to vascular Strain of flexor muscle of left hip 8184773436 4823924 S76.012A will provide stretches in case r/t hip flexor strain. may use heat or ice, avoid triggering sx. [id number] Jayesh Mcallister MD Main Office [address] [facility] [address] [facility] [place] [address] 08/28/2023 09:07:11 08/28/2023 10:20:51 Adult health examination 163153650 Z00.00 Patient was counseled on healthy diet, exercise and nutrition due to Body mass index is 35.7 kg/m . Last PSADate: 03/20/20Res ult: 0.7Plan: discussed usptf guideline , we will repeat PSA. Pt. is asymptomat ic. Last Colonoscop y:Date: 08/28/20Resu lt: wnlPlan: repeat 5 yrs per GI given prior hx of 4 tubular adenoma Vaccines:T dAP: 10/28/15Zos ter rec: script provided.P CV20: not dueInfluen za: declinedCo vid: 04/24/20, 05/22/20, bivalent advised Routine labs today fasting Immunizati on status reviewed. Will screen based on risk factors. Regular dental and ophtho care advised as well as seat belt and sunscreen use. Distracted driving discussed. Medication reconciled . Essential hypertension 94335735 I10 Stable HTN on current meds. repeat labs. Follow DASH diet. F/u 6 m. Body mass index 30+ - obesity 404473620 E66.9 Z68.33 Discussed exercise and low calorie diet. Pt. is overall doing well./ Might want to consider Wegovy again due to bmi of 33. Nocturia 593057023 R35.1 Gastroesop hageal reflux disease 756892931 K21.9 stable. Hyperlipidemia 21155266 E78.5 Repeat fasting lipids. Discussed statin use due to ascvd he wants to try lifestyle changes first, understand risk.encou raged diet and exercise. Venous varices 382198471 I83.92 Pt. is having venous ablation procedure scheduled. Obstructiv e sleep apnea syndrome 56497368 G47.33 reports no snoring due to weight loss. Not using CPAP. Varicella vaccination 68 297869 Z23 Administra tion of pneumococcal vaccine 55291336 Z23 Tubular adenoma 67519256 7 D36.9 Colonoscop y is due in 2025. [id number] Drew Blood MD Main Office [address] [facility] [address] [facility] [place] [address] 04/17/2024 10:58:00 04/17/2024 11:32:03 Essential hypertension 21903440 I10 Low sodium diet discussedC ounseled on medication adherence - bp stable with current regimen.Co unseled on diet/exerc ise Lateral epicondylitis 20 9516671 M77.12 Advised RICE.Advis ed to use prescribe ibuprofen for 5 days straight then PRN.PT referral given.Stra p given.(+) cozen test. [id number] Drew Blood MD Main Office [address] [facility] [address] [facility] [place] [address] 07/17/2024 13:20:01 07/17/2024 14:02:00 Left lateral elbow tendinopathy 6023252329 47421 M77.12 [id number] Venous varices 675776911 I83.92 Strain of muscle of lower limb 682979707 S76.012A 35945852 Pain in le ft lower limb 532395075 M79.605 Take ibuprofen for chronic pack pain PRN.Reques t refill.Ris k of longer term NSAID use reviewed. Obstructiv e sleep apnea syndrome 35812969 G47.33 Body mass index 30+ - obesity 711274240 E66.9 Z68.33 Essential hypertension 57200441 I10 Counseled on medication adherence - bp stable with current regimen.Co unseled on diet/exerc ise [id number] Drew Blood MD Main Office [address] [facility] [address] [facility] [place] [address] 12/18/2024 09:42:53 12/18/2024 10:17:03 Pain of left calf 0229982841 982412 M79.662 23368657 - Patient presenting with agnes brown 1 [...] care. Blood pres sure above reference range 14768298 R03.0 480743 - Patient had elevated BP in office [...] log and home cuff to next visit. [id number] Drew Blood MD Main Office [address] [facility] [address] [facility] [place], [place] [address] 01/01/2025 09:15:22 01/01/2025 10:17:35 Essential hypertension 71782275 I10 - Patient is reporting improved control [...] plan of care. Pain of left calf 562501 2938 872054 M79.662 74507554 - XRay of lower back demonstrat ed [...] with PT. Obstructiv e sleep apnea syndrome 08569578 G47.33 - Patient has history of ARIN [...] symptoms, and initiation of weight loss drug. [id number] Anjel Massey MD Main Office [address] [facility] [address] [place] [address] 01/22/2025 10:03:13 01/22/2025 10:56:55 Essential hypertension 61324043 I10 - Blood pressure not well controlled [...] of plan of care. Lumbar radiculopathy 128 742379 M54.16 64629 - Patient presenting with ongoing back and [...] LastModified Time None Recorded Advance Directives Directive Y: HCP Payers Insurance Date Sequence Insurance Name Policy Number Policy Castelan Covered Member ID Castelan Member ID Guarantor Name 02/14/2025 1 [employer] (MEDICARE REPLACEMENT/AD VANTAGE - PPO) Brandon Davis [id number] Brandon Davis 01/01/2025 1 [place] [facility] Brandon Davis [id number] Brandon Davis 01/01/2025 1 [facility] [employer] [facility] (MEDICAID HMO) [id number] Brandon Davis [id number] Brandon Davis 01/01/2025 2 MEDICARE B-[place]: [facility] [employer] Brandon Davis [id number] Brandon Davis 01/01/2025 1 [facility] (MEDICAID REPLACEMENT - HMO) [id number] Brandon Davis [id number] Brandon Davis 01/01/2025 1 [place] [facility] Brandon Davis [id number] Brandon Davis 01/01/2025 1 [facility] (MEDICAID HMO) Brandon Davis [id number] Brandon Davis 01/01/2025 1 [facility] MEDICAID ESSENTIAL (MEDICAID HMO) [id number] Brandon Davis [id number] Brandon Davis 01/01/2025 1 [facility] DIRECT CONNECTORC[facility] TYPE III (HMO) Brandon Davis [id number] Brandon Davis Notes Date Note Type Note Provider Name and Address Organization Details Recorded Time 5 text/htm l Musculoskeletal PainReported by PatientHPIFor quality, patient reportsaching. For severity, patient reportsworsening. For location, patient reportsleft arm. For duration, patient reportspresent for 1-6 months. For timing, patient reportsintermittent. For associated symptoms, patient reportsno fever,no weak limbs,no tingling,no numbness of the legs/feet, andon incontinence. Hypertension F/UReported by PatientHPIFor lifestyle, patient reportsnot exercising regularlybut reportslimiting/avoiding salt. For associated symptoms, patient reportsno dizziness,no lightheadedness,no chest pain,no shortness of breath,no palpitations,no edema, andno calf pain with exertion. For medications, patient reportstaking medications as directedandno side effects from medication.ROS as noted in the HPI Drew Blood MD [address], [address], [facility] 04/17/2024 11:26:39 5 text/htm l problems-MaleReported by PatientGU ProblemsFor quality, patient reportsdull. For location, patient reportsthighs. For context, patient reportsnot sexually activeandno sexual dysfunction. For associated symptoms, patient reportsno penile lesions/sores,no scrotal lesions/sores,no penile discharge,no flank pain,no jaundice,no blood in the urine,no pain during urination, andno impotence. For onset/timing, (come and goes.). Musculoskeletal PainReported by PatientHPIFor quality, patient reportsdull. For severity, patient reportsworsening. For location, patient reportsleft hip. For duration, patient reportspresent for 1-6 months. For timing, patient reportsintermittent. For associated symptoms, patient reportsno fever,no weak limbs,no tingling,no numbness of the legs/feet, andon incontinence.Follow up for left elbow which has resolved.Notes groin pain radiating from foot up, worse while walking hx of vericose vein and vein stripping The patient presents today for follow-up regarding two main concerns: 1. Left Elbow Pain:Previously suspected to be lateral epicondylitis. After a course of conservative treatment, the patient reports resolution of symptoms. 2. Groin and Foot Vein Pain/Swelling:The patient reports a dull, persistent groin pain that has been ongoing for approximately 1 to 6 months. He describes engorged veins on the dorsum of the left foot, with associated swelling and radiation of pain into the groin. He believes this may be vascular in origin, given his history of vein stripping procedures. His is concerned about a possible blood clot, but the patient denies: -Calf tenderness-Redness or warmth in the leg-Lower limb weakness, numbness, or tingling-Urinary symptoms (dysuria, hematuria, sexual dysfunction, penile or scrotal lesions or discharge)-Systemic symptoms (fever, jaundice)-Hip pain or flank pain-Bowel or bladder incontinence He also has a history of inguinal hernia repair. No scrotal lumps or testicular pain. He is not currently taking analgesics and has declined medications at this time. He is interested in further addressing weight management and has moderate sleep apnea but cannot tolerate CPAP therapy. Drew Blood MD [address], [address], [facility] 07/17/2024 18:51:04 5 text/htm l Musculoskeletal PainReported by PatientHPIFor [...] be back on medications. Drew Blood MD [address], [address], [facility] 12/18/2024 17:27:43 5 text/htm l Hypertension F/UReported by PatientHPIFor associated symptoms, patient reportsno dizziness,no lightheadedness,no chest pain,no shortness of breath,no palpitations,no edema, andno calf pain with exertion(a little more tired over the past 3-4 days). For lifestyle, patient reportsregular exerciseandlimiting/avoiding salt(always out and about and active.stopped adding [...] 15 Units) as well, prescribed by the [facility] in [facility]. States he sleeps well with an adjustable bed. Drew Blood MD [address], [address], [facility] 01/01/2025 18:47:27 5 text/htm l Hypertension F/UReported by PatientHPIFor associated symptoms, patient reportsno dizziness,no lightheadedness,no chest pain,no shortness of breath,no palpitations,no edema, andno calf pain with exertion. For lifestyle, patient reportsregular exerciseandlimiting/avoiding salt(always out and about and active.stopped adding [...] and thinks helps too. Drew Blood MD [address] [address], [place], [address], [facility] 02/06/2025 12:55:56
--- OUTSIDE RECORDS SUMMARY | 2025-02-14 12:51 | XMS_ITS | Data Portability ---
Author Organization [facility] Address [address] [place] [phone] Assessment No assessment recorded. Plan of Treatment Reminders Order Date Submit Date Provider Last Modified By Organization Details Last Modified Time Details Appointments None record ed. Lab None record ed. Referral None record ed. Procedures None record ed. Surgeries None record ed. Imaging None record ed. Medication Orders None record ed. Patient TargetsNo targets recorded. Patient InstructionsNo instructions recorded. Reason for Referral None Reported. Medical Equipment None Reported. Medications Name Sig Start Date Stop Date Status Note LastModified by Organization Details LastModified Time amoxicillin 500 mg capsule TAKE 1 CAPSULE BY MOUTH EVERY 6 HOURS UNTIL GONE active Not Available Not Available No t Available ibuprofen 800 mg tablet TAKE 1 TABLET 3 TIMES A DAY BY ORAL ROUTE NEEDED FOR 10 DAYS. active Not Available Not Available No t Available meloxicam 15 mg tablet TAKE 1 TABLET BY MOUTH EVERY DAY active Not Available Not Available No t Available acetaminophen 300 mg-codeine 30 mg tablet TAKE 1 TABLET BY MOUTH EVERY 6 HOURS NEEDED PAIN active Not Available Not Available No t Available lisinopril 10 mg tablet TAKE 1 TABLET BY MOUTH EVERY DAY active Not Available Not Available No t Available omeprazole 20 mg capsule,delaye d release TAKE 1 CAPSULE BY MOUTH TWICE A DAY active Not Available Not Available No t Available cyclobenzaprin e 5 mg tablet TAKE 1 TABLET BY MOUTH 3 TIMES A DAY DIRECTED FOR 10 DAYS. active Not Available Not Available No t Available Vitals None Recorded Social History None recorded. Functional Status None recorded. Mental Status None recorded. Family History Nothing Reported. Medical History No medical history recorded. Immunizations Vaccine Type Date Status Note Provider Nam e and Address Organization Details Recorded Time COVID-19, mRNA, LNP-S, PF, 100 mcg/0.5mL dose or 50 mcg/0.25mL dose 05/22/2020 completed Vaccine Gregory akers [facility] 05/22/2020 10:31:52 COVID-19, mRNA, LNP-S, PF, 100 mcg/0.5mL dose or 50 mcg/0.25mL dose 04/24/2020 completed Ana Laura akers [facility] 04/24/2020 10:53:54 Past Encounters Encounter ID Performer Location Encounter Start Date Encounter Closed Date Diagnosis/Indication Diagnosis SNOMED-CT Code Diagnosis ICD10 Code Diagnosis IMO Codes Diagnosis Note [id number] Kaiser Jenkins MD Vaccines - RAHAT [facility],[address] [place] [address] 04/24/2020 10:22:42 04/24/2020 12:08:08 Active or passive immunization 492435008 Z23 [id number] Kaiser Jenkins MD Vaccines - RAHAT [facility],[address] [place] [phone] 05/22/2020 10:30:11 06/11/2020 03:38:34 Active or passive immunization 765641061 Z23 Health Concerns Section Related Observation LastModified by Organization Detai ls LastModified Time None Recorded Concern Status LastModified by Organization Details LastModified Time None Recorded Advance Directives Directive None Recorded Payers Insurance Date Sequence Insurance Name Policy Number Policy Castelan Covered Member ID Castelan Member ID Guarantor Name 05/20/2020 1 *SELF PAY* Bladimir Davis 06/11/2020 1 [facility] [employer] [facility] [place] (HMO) [id number] Brandon Davis [id number] Brandon Davis
== END 2025-02-14 11:44 | disposition home or self-care (01) ==
LOC: HO.HPHYS 10:57
PROVIDERS: Visit Provider Physician Assistant
DX: M54.16 Radiculopathy, lumbar region (principal); M47.816 Spondylosis without myelopathy or radiculopathy, lumbar region
CPT/HCPCS: 99204

== ENCOUNTER → 2025-02-14 10:56 | Outpatient (BNVA) | payer MEDICARE, SELFPAY | PROVIDERS: Visit Provider Physician Assistant | DX: M47.26 Other spondylosis with radiculopathy, lumbar region (principal); T21.04XA Burn of unspecified degree of lower back, initial encounter; X19.XXXA Contact with other heat and hot substances, initial encounter | CPT/HCPCS: 99202 ==